=== PATIENT | female | born 1970 | race Caucasian/White ===

== ENCOUNTER → 2017-05-21 | Outpatient (CLI) | payer OTHER ==
--- NOTE | 2017-05-21 13:05 | CT ---
EXAMINATION TYPE: CT brain wo con DATE OF EXAM: 05/21/2017 COMPARISON: NONE HISTORY: High blood pressure and headache CT DLP: [address] of the brain was performed. The ventricles, basal cisterns and sulci overlying the cerebral convexities demonstrate a normal appe arance. There is no evidence for intracranial hemorrhage or sulcal effacement. No mass effects are seen. Osseous calvarium is intact. If symptoms persist consider MRI as clinically warranted. IMPRESSION: 1. No acute intracranial process is seen at this time.
== END | disposition home or self-care (01) ==
LOC: RADCTMAIN 12:45
PROVIDERS: ATTEND Physician Assistant Medical
DX: R51 Headache (principal); I10 Essential (primary) hypertension
CPT/HCPCS: 70450

== ENCOUNTER 2018-08-23 14:52 | Emergency (ER) | payer OTHER ==
[2018-08-23 15:15] VITALS: TEMP 98
[2018-08-23 17:04] LABS: Basophils % (A) 0 %; Eosinophils # (A) 0.2 k/uL (0-0.7); Eosinophils % (A) 3 %; HCT 40.9 % (34.0-46.0); Lymphocytes # (A) 1.8 k/uL (1.0-4.8); Lymphocytes % (A) 20 %; MCH 27.9 pg (25.0-35.0); MCHC 31.7 g/dL (31.0-37.0); Mean Platelet Volume 7.5; Monocytes # (A) 0.5 k/uL (0-1.0); Monocytes % (A) 6 %; Neutrophils # (A) 6.3 k/uL (1.3-7.7); Neutrophils % (A) 70 %; Platelet Count 267 k/uL (150-450); RBC 4.65 m/uL (3.80-5.40); RDW 12.9 % (11.5-15.5)
[2018-08-23 17:18] LABS: Calcium 9.2 mg/dL (8.4-10.2); Potassium 4.1 mmol/L (3.5-5.1); Total Bilirubin 0.2 mg/dL (0.2-1.3); Total Protein 6.7 g/dL (6.3-8.2)
--- NOTE | 2018-08-23 17:23 | XR ---
EXAMINATION TYPE: XR chest 2V DATE OF EXAM: 08/23/2018 COMPARISON: None HISTORY: 48-year-old female with chest pain TECHNIQUE: PA and lateral views FINDINGS: The cardiomediastinal silhouette, aorta, and pulmonary vasculature are within normal limits. Low lung volumes with strandy bibasilar atelectasis. No consolidation or pleural effusion. IMPRESSION: Hypoventilatory changes but otherwise without acute cardiopulmonary process.
[2018-08-23 17:29] LABS: INR 0.9 (<1.2); Partial Thromboplastin Time 25.8 sec (22.0-30.0); Prothrombin Time 9.9 sec (9.0-12.0)
--- NOTE | 2018-08-23 17:40 | ED ---
General Adult HPI - General Source: patient, RN notes reviewed Mode of arrival: ambulatory Limitations: no limitations <Richard Payton - Last Filed: 08/23/18 17:49> <Dennis Cornell - Last Filed: 08/23/18 19:33> - General Chief complaint: Extremity Problem,Nontraumatic Stated complaint: Leg swelling in both legs Time Seen by Provider: 08/23/18 15:43 - History of Present Illness Initial comments: 48-year-old female with a past medical history hypertension, kidney stones, sarcoidosis, left knee replacement presents to the emergency department for bilateral lower extremity swelling. This has been ongoing for about one week. Patient states she otherwise feels fine. Denies any history of heart failure. Patient states that her has heart failure so he was concerned that this could be the case and wanted her to be evaluated. Patient denies standing on her feet more often than normal. States that swelling is better after she elevates her feet. Denies any significant pain in the calves.Patient has no other complaints at this time including shortness of breath, chest pain, abdominal pain, nausea or vomiting, headache, or visual changes. (Richard Payton) - Related Data Home Medications Medication Instructions Recorded Confirmed - 1 tab PO QAM 04/28/14 08/03/15 Metoprolol Succinate [Toprol XL] 100 mg PO QAM 04/28/14 08/03/15 Omeprazole [PriLOSEC] 20 mg PO QAM 04/28/14 08/03/15 Sertraline HCl 100 mg PO QAM 04/28/14 08/03/15 Zolpidem Tartrate 10 mg PO HS 04/28/14 08/03/15 Cyanocobalamin [Vitamin B-12] 500 mcg PO DAILY@1200 07/05/14 08/03/15 Probiotic(Dose Unknown) 1 tab PO DAILY 07/05/14 08/03/15 Previous Rx's Medication Instructions Recorded Cyclobenzaprine [Flexeril] 10 mg PO TID #20 tablet 08/03/15 HYDROcodone/APAP 5-325MG [Gulliver 5] 1 each PO Q4HR PRN #20 tab 08/03/15 Naproxen [Naprosyn] 500 mg PO Q12HR #24 tab 06/09/16 Allergies Allergy/AdvReac Type Severity Reaction Status Date / Time Iodinated Contrast- Oral and Allergy Rash/Hives Verified 08/23/18 15:15 IV Dye [Iodinated Contrast Media - IV Dye] Penicillins Allergy Rash/Hives Verified 08/23/18 15:15 Sulfa (Sulfonamide Allergy severe Verified 08/23/18 15:15 Antibiotics) blisters vancomycin Allergy Rash/Hives Verified 08/23/18 15:15 Review of Systems ROS Other: All systems not noted in ROS Statement are negative. <Richard Payton P - Last Filed: 08/23/18 17:49> ROS Other: All systems not noted in ROS Statement are negative. <Dennis Cornell - Last Filed: 08/23/18 19:33> ROS Statement: Those systems with pertinent positive or pertinent negative responses have been documented in the HPI. Past Medical History Past Medical History: GERD/Reflux, Hypertension Additional Past Medical History / Comment(s): HX KIDNEY STONES, SARCOIDOSIS History of Any Multi-Drug Resistant Organisms: None Reported Past Surgical History: Appendectomy, Section, Joint Replacement, Orthopedic Surgery Additional Past Surgical History / Comment(s): LT KNEE REPLACEMENT, monty heel spurs Past Anesthesia/Blood Transfusion Reactions: No Reported Reaction Past Psychological History: Depression Smoking Status: Former smoker Past Alcohol Use History: None Reported Past Drug Use History: None Reported - Past Family History Mother Family Medical History: No Reported History Father Family Medical History: No Reported History Additional Family Medical History / Comment(s): COLON RESECTION R/T DIVERTICULITIS <Richard Payton P - Last Filed: 08/23/18 17:49> General Exam Limitations: no limitations General appearance: alert, in no apparent distress Head exam: Present: atraumatic, normocephalic, normal inspection Eye exam: Present: normal appearance, PERRL, EOMI. Absent: scleral icterus, conjunctival injection, periorbital swelling ENT exam: Present: normal exam, mucous membranes moist Neck exam: Present: normal inspection, full ROM. Absent: tenderness, meningismus, lymphadenopathy Respiratory exam: Present: normal lung sounds bilaterally. Absent: respiratory distress, wheezes, rales, rhonchi, stridor Cardiovascular Exam: Present: regular rate, normal rhythm, normal heart sounds. Absent: systolic murmur, diastolic murmur, rubs, gallop, clicks GI/Abdominal exam: Present: soft, normal bowel sounds. Absent: distended, tenderness, guarding, rebound, rigid Extremities exam: Present: full ROM (Full range of motion of lower extremities bilaterally), normal capillary refill (Capillary refill less than 2 seconds, DP pulses 2+ and equal bilaterally), pedal edema (Mild edema noted of bilateral lower extremities however there is no pitting edema present. Patient does have large body habitus so it is difficult to decipher edema versus habitus.), other (Sensation intact in lower extremity bilaterally.). Absent: joint swelling (No swelling of the joints of the lower extremities,), calf tenderness (No tenderness of bilateral calves, negative Eduardo signs. No erythema or increased warmth and lower extremities) Neurological exam: Present: alert, oriented X3, CN II-XII intact Psychiatric exam: Present: normal affect, normal mood <Richard Payton P - Last Filed: 08/23/18 17:49> Course Vital Signs 08/23/18 08/23/18 15:13 18:46 Temperature 98.0 F Pulse Rate 84 80 Respiratory 18 16 Rate Blood Pressure 133/86 138/98 O2 Sat by Pulse 99 97 Oximetry EKG Findings - EKG Comments: EKG Findings:: Normal sinus rhythm, ventricular rate 80, SC interval 172, QTC 452, no evidence of ST elevation or depression <Richard Payton P - Last Filed: 08/23/18 17:49> Medical Decision Making - Lab Data Result diagrams: 08/23/18 16:24 08/23/18 16:24 <Richard Payton - Last Filed: 08/23/18 17:49> - Lab Data Result diagrams: 08/23/18 16:24 08/23/18 16:24 <Dennis Cornell - Last Filed: 08/23/18 19:33> - Medical Decision Making 48-year-old female with a past medical history of hypertension, kidney stones, sarcoidosis, left knee replacement presents to the emergency department for bilateral lower extremity swelling 1 week. States she otherwise feels fine, no chest pain shortness of breath. No abdominal pain. No history of heart failure. No swelling elsewhere. She denies any increased standing or walking. Denies shortness of breath. States that swelling improves after she elevates her feet. Neurovascular status intact in lower extremities. Patient does have a large body habitus so it is difficult to decipher edema versus normal habitus however no pitting edema. Circumference equal bilaterally. Patient is otherwise well-appearing, sitting on edge of bed, no distress. CBC CMP unremar kable. Troponin is negative. BNP is 131. EKG shows a normal sinus rhythm with a ventricular rate of 80. Chest x-ray shows no consolidation or pleural effusion. Hypoventilatory changes noted but otherwise without acute cardiopulmonary process. At this time she has likely benign dependent edema. No evidence of heart failure. At this point discussed compression stockings of lung primary care tomorrow. Discussed returning here if she has any worsening symptoms. (Richard Payton) 40-year-old female with bilateral lower extremity edema for one week. Patient well-appearing with stable vitals. Chest x-ray negative for acute pulmonary edema. She has normal CBC, normal CMP, negative troponin, negative BMP. I feel this is likely related to dependent edema. Patient stable for discharge and outpatient follow-up. (Dennis Cornell) - Lab Data Lab Results 08/23/18 08/23/18 08/23/18 Range/Units 16:24 16:24 16:24 WBC 9.0 (3.8-10.6) k/uL RBC 4.65 (3.80-5.40) m/uL Hgb 13.0 (11.4-16.0) gm/dL Hct 40.9 (34.0-46.0) % MCV 88.0 (80.0-100.0) fL MCH 27.9 (25.0-35.0) pg MCHC 31.7 (31.0-37.0) g/dL RDW 12.9 (11.5-15.5) % Plt Count 267 (150-450) k/uL Neutrophils % 70 % Lymphocytes % 20 % Monocytes % 6 % Eosinophils % 3 % Basophils % 0 % Neutrophils # 6.3 (1.3-7.7) k/uL Lymphocytes # 1.8 (1.0-4.8) k/uL Monocytes # 0.5 (0-1.0) k/uL Eosinophils # 0.2 (0-0.7) k/uL Basophils # 0.0 (0-0.2) k/uL PT 9.9 (9.0-12.0) sec INR 0.9 (<1.2) APTT 25.8 (22.0-30.0) sec Sodium 142 (137-145) mmol/L Potassium 4.1 (3.5-5.1) mmol/L Chloride 105 (98-107) mmol/L Carbon Dioxide 28 (22-30) mmol/L Anion Gap 9 mmol/L BUN 15 (7-17) mg/dL Creatinine 0.89 (0.52-1.04) mg/dL Est GFR (CKD-EPI)AfAm 89 (>60 ml/min/1.73 sqM) Est GFR (CKD-EPI)NonAf 77 (>60 ml/min/1.73 sqM) Glucose 107 H (74-99) mg/dL Calcium 9.2 (8.4-10.2) mg/dL Magnesium 2.0 (1.6-2.3) mg/dL Total Bilirubin 0.2 (0.2-1.3) mg/dL AST 18 (14-36) U/L ALT 21 (9-52) U/L Alkaline Phosphatase 84 (38-126) U/L Troponin I (0.000-0.034) ng/mL NT-Pro-B Natriuret Pep pg/mL Total Protein 6.7 (6.3-8.2) g/dL Albumin 4.0 (3.5-5.0) g/dL 08/23/18 08/23/18 Range/Units 16:24 16:24 WBC (3.8-10.6) k/uL RBC (3.80-5.40) m/uL Hgb (11.4-16.0) gm/dL Hct (34.0-46.0) % MCV (80.0-100.0) fL MCH (25.0-35.0) pg MCHC (31.0-37.0) g/dL RDW (11.5-15.5) % Plt Count (150-450) k/uL Neutrophils % % Lymphocytes % % Monocytes % % Eosinophils % % Basophils % % Neutrophils # (1.3-7.7) k/uL Lymphocytes # (1.0-4.8) k/uL Monocytes # (0-1.0) k/uL Eosinophils # (0-0.7) k/uL Basophils # (0-0.2) k/uL PT (9.0-12.0) sec INR (<1.2) APTT (22.0-30.0) sec Sodium (137-145) mmol/L Potassium (3.5-5.1) mmol/L Chloride (98-107) mmol/L Carbon Dioxide (22-30) mmol/L Anion Gap mmol/L BUN (7-17) mg/dL Creatinine (0.52-1.04) mg/dL Est GFR (CKD-EPI)AfAm (>60 ml/min/1.73 sqM) Est GFR (CKD-EPI)NonAf (>60 ml/min/1.73 sqM) Glucose (74-99) mg/dL Calcium (8.4-10.2) mg/dL Magnesium (1.6-2.3) mg/dL Total Bilirubin (0.2-1.3) mg/dL AST (14-36) U/L ALT (9-52) U/L Alkaline Phosphatase (38-126) U/L Troponin I <0.012 (0.000-0.034) ng/mL NT-Pro-B Natriuret Pep 131 pg/mL Total Protein (6.3-8.2) g/dL Albumin (3.5-5.0) g/dL Disposition Is patient prescribed a controlled substance at d/c from ED?: No Time of Disposition: 17:51 <Richard Payton P - Last Filed: 08/23/18 17:49> <Dennis Cornell - Last Filed: 08/23/18 19:33> Clinical Impression: Dependent edema Disposition: HOME SELF-CARE Condition: Good Instructions (If sedation given, give patient instructions): Leg Edema (ED) Additional Instructions: Please use compression stockings. Keep legs elevated while sitting. Follow up with primary care in 1-2 days. Return here if you have any worsening symptoms. Referrals: Willian Elliott DO [Primary Care Provider] - 1-2 days
[2018-08-23 18:47] VITALS: BP 138/98; PULSE 80; RESP 16
== END 2018-08-23 19:04 | disposition home or self-care (01) ==
LOC: EC 14:52
DX: R60.9 Edema, unspecified (principal); I10 Essential (primary) hypertension; K21.9 Gastro-esophageal reflux disease without esophagitis; F32.9 Major depressive disorder, single episode, unspecified; Z79.899 Other long term (current) drug therapy; Z88.0 Allergy status to penicillin; Z88.1 Allergy status to other antibiotic agents; Z88.2 Allergy status to sulfonamides; Z91.041 Radiographic dye allergy status; Z87.891 Personal history of nicotine dependence; Z96.652 Presence of left artificial knee joint
CPT/HCPCS: 36415; 71046; 80053; 83735; 83880; 84484; 85025; 85610; 85730; 99284

== ENCOUNTER → 2019-02-01 | Outpatient (CLI) | payer OTHER ==
--- NOTE | 2019-02-02 08:51 | MM ---
Reason for exam: screening (asymptomatic). Last mammogram was performed 4 years ago. History: Benign excisional biopsy of the left breast, 2000. Took hormonal contraceptives for 10 years. Physical Findings: A clinical breast exam by your physician is recommended on an annual basis and results should be correlated with mammographic findings. MG 3D Screening Mammo W/Cad Bilateral CC and MLO view(s) were taken. Prior study comparison: February 01, 2015, bilateral MG 3d screening mammo w/cad. There are scattered fibroglandular densities. Benign calcifications. No significant changes when compared with prior studies. ASSESSMENT: Benign, BI-RAD 2 RECOMMENDATION: Routine screening mammogram of both breasts in 1 year.
== END | disposition home or self-care (01) ==
LOC: RADMAMWWP 13:53
PROVIDERS: ATTEND Family Medicine
DX: Z12.31 Encounter for screening mammogram for malignant neoplasm of breast (principal)
CPT/HCPCS: 77063; 77067

== ENCOUNTER → 2020-06-12 | Outpatient (CLI) | payer OTHER ==
[2020-06-12 13:29] VITALS: BP 122/88; PULSE 83; RESP 16; TEMP 98.1
--- NOTE | 2020-06-12 14:00 | P.PAINCN ---
History of Present Illness - Reason for Consult Consult date: 06/12/20 - History of Present Illness This is 50 years old female with a chronic history of severe neck pain and headaches started 6 years ago, after she hit her neck against wall, patient had cervical epidural steroid injection x2 , which helped her pain significantly, patient did very well until 6 months ago when she started to have similar symptoms, which is severe neck pain with some headache, the neck pain is constant and increases with any neck movement, the pain is not radiating to the upper extremity, she denies any numbness or tingling sensation, she reports that the pain radiated to the left shoulder blade area, she denies any visual changes, she denies any numbness or tingling sensation in the upper extremity, she denies any fever or night sweats, she denies any change in the bowel movements or urination, patient failed conservative treatment Past Medical History Past Medical History: GERD/Reflux, Hypertension Additional Past Medical History / Comment(s): had fallen hard and valentín neck back in 2016-at that time received injections to neck x3 with good relief ,now having neck pain radiating vazquez shoulders causing migraines, HX KIDNEY STONES, SARCOIDOSIS History of Any Multi-Drug Resistant Organisms: None Reported Past Surgical History: Appendectomy, Section, Joint Replacement, O rthopedic Surgery Additional Past Surgical History / Comment(s): VAZQUEZ KNEE REPLACEMENTs, vazquez heel spurs Past Anesthesia/Blood Transfusion Reactions: No Reported Reaction Past Psychological History: Depression Smoking Status: Former smoker Past Alcohol Use History: None Reported Additional Past Alcohol Use History / Comment(s): STARTED SMOKING AT AGE 19 OR 20,QUIT SMOKING AT AGE 26 Past Drug Use History: None Reported - Past Family History Mother Family Medical History: No Reported History Father Family Medical History: No Reported History Additional Family Medical History / Comment(s): COLON RESECTION R/T DIVERTICULITIS Medications and Allergies Home Medications Medication Instructions Recorded Confirmed Type Metoprolol Succinate [Toprol XL] 100 mg PO QAM 04/28/14 06/08/20 History Omeprazole [PriLOSEC] 20 mg PO QAM 04/28/14 06/08/20 History Sertraline HCl 100 mg PO QAM 04/28/14 06/08/20 History Zolpidem Tartrate 10 mg PO 04/28/14 06/08/20 History Cyanocobalamin [Vitamin B-12] 500 mcg PO DAILY@1200 07/05/14 06/08/20 History Cholecalciferol [Vitamin D3 (25 125 mcg PO DAILY 06/08/20 06/08/20 History Mcg = 1000 Iu)] Flaxseed Oil [[place]-3 Flaxseed Oil] 1 dose PO DAILY 06/08/20 06/08/20 History Ibuprofen [Motrin] 600 mg PO Q8HR PRN 06/08/20 06/08/20 History Oxybutynin Chloride 5 mg PO BID 06/08/20 06/08/20 History Vitamin C/Biotin [Hair, Skin and 2 tab PO DAILY 06/08/20 06/08/20 History Nails] Vitamin E 400 unit PO DAILY 06/08/20 06/08/20 History Zinc 50 mg PO DAILY 06/08/20 06/08/20 History buPROPion XL [Wellbutrin Xl] 300 mg PO DAILY 06/08/20 06/08/20 History hydroCHLOROthiazide [Hydrodiuril] 25 mg PO DAILY 06/08/20 06/08/20 History Allergies Allergy/AdvReac Type Severity Reaction Status Date / Time Iodinated Contrast Media Allergy Rash/Hives Verified 06/08/20 14:30 [Iodinated Contrast Media - IV Dye] Penicillins Allergy Rash/Hives Verified 06/08/20 14:30 Sulfa (Sulfonamide Allergy severe Verified 06/08/20 14:30 Antibiotics) blisters vancomycin Allergy Rash/Hives Verified 06/08/20 14:30 Physical Exam Vitals: Vital Signs Temp Pulse Resp BP Pulse Ox 06/12/20 13:26 98.1 F 83 16 122/88 96 Physical Examinations : -Constitutiona : Cooperative , not in acute distress . -HEENT : nech : supple , no Lymphadenopathy , normal thyroid size . : eyes : no ptosis , no icterus, no photophobia . - neurologic : Cranial nerve II to XII intact , no focal neurological deffecit . -psychatric : alert , oriented X 3 , appropriate affect , intact judgment and insight . -Lymphatic : no Lymphadenopathy . - musculoskeltal : Cervical Spine motor stregnth in the deltoid and biceps, normal right side , normal Left side motor stregnth biceps and the wrist extensors normal right side ,normal left side . motor stregnth in the triceps muscle . normal Right side , normal Left side deep tendon reflexes normal at the biceps , normal at Brachioradialis , normal at triceps. cervical facet loading test: Positive Bilaterally Spurling test= positive Right , positive left. Neck distraction test= positive Right , positive left. Kamari sign= positive right, positive left . Lumber spine moter stegnth lower extremities ,thigh and legs 5/5 Right side , 5/5 Left side Results Comments: MRI of the cervical spine= multilevel cervical degenerative disc disease and multilevel cervical facet arthropathy Assessment and Plan Plan: Assessment and plan=1-cervical degenerative disc disease. 2-cervical spondylosis and cervical facet arthropathy. Patient could benefit from cervical epidural steroid injections under fluoroscopy guidance at C6 7 or C7-T1 If she continued to have severe neck pain after cervical epidural steroid injection, then we went targeting the facetogenic component by doing Medial branch block Time with Patient: Greater than 30 PQRS Measure Charge Sheet Measure #130: Documentation of Current Meds in Medical Chart: Patient's medications documented in chart Measure #226: Tobacco Use: Screen & Cessation Intervention: Pt not a tobacco user Measure #111: Pneumonia Vaccination: Pneumococcal vaccine NOT administered or previously given Measure #47: Advance Care Plan: Advance care planning discussed & documented, pt chose/unable to give Measure #412: Opioid Treatment Agreement: No documentation of signed opioid treatment agreement Measure #408: Opioid Therapy Follow-up Evaluation: Patient had NO f/u eval minimum every 3 months during opioid therapy Measure #317: Preventitive Care & Scrn High Bld Press & F/U: Normal blood pressure, f/u not required Measure #128: Body Mass Index (BMI) Screening & Follow-up: BMI documented ABOVE normal parameters - f/u documented Measure #131: Pain Assessment & Follow-up: Pain positive & plan documented, Follow-up scheduled Measure #431: Unhealthy Alcohol Use Preventative Care & Scrn: Patient not identified as an unhealthy alcohol user PQRS Narrative: Smoking Status Former smoker Blood Pressure 122/88 Pain Intensity [Neck] 4 Scale Used Numeric (1 - 10) Hx Alcohol Use (MH) No Home Medications: Ambulatory Orders Metoprolol Succinate [Toprol XL] 100 mg PO QAM 04/28/14 Omeprazole [PriLOSEC] 20 mg PO QAM 04/28/14 Sertraline HCl 100 mg PO QAM 04/28/14 Zolpidem Tartrate 10 mg PO 04/28/14 Cyanocobalamin [Vitamin B-12] 500 mcg PO DAILY@1200 07/05/14 Cholecalciferol [Vitamin D3 (25 Mcg = 1000 Iu)] 125 mcg PO DAILY 06/08/20 Flaxseed Oil [[place]-3 Flaxseed Oil] 1 dose PO DAILY 06/08/20 Ibuprofen [Motrin] 600 mg PO Q8HR PRN 06/08/20 Oxybutynin Chloride 5 mg PO BID 06/08/20 Vitamin C/Biotin [Hair, Skin and Nails] 2 tab PO DAILY 06/08/20 Vitamin E 400 unit PO DAILY 06/08/20 Zinc 50 mg PO DAILY 06/08/20 buPROPion XL [Wellbutrin Xl] 300 mg PO DAILY 06/08/20 hydroCHLOROthiazide [Hydrodiuril] 25 mg PO DAILY 06/08/20
== END ==
LOC: PNWHC3 13:06
PROVIDERS: ATTEND Specialist
DX: M47.812 Spondylosis without myelopathy or radiculopathy, cervical region (principal); M50.30 Other cervical disc degeneration, unspecified cervical region; K21.9 Gastro-esophageal reflux disease without esophagitis; I10 Essential (primary) hypertension; F32.9 Major depressive disorder, single episode, unspecified; Z79.899 Other long term (current) drug therapy; Z87.891 Personal history of nicotine dependence
CPT/HCPCS: 99211

== ENCOUNTER 2020-07-04 13:16 | Day surgery (SDC) | payer OTHER ==
[2020-06-30 09:34] VITALS: BMI 54.9
[~2020-07-04 13:16] MED LIST: LACTATED RINGERS 1,000 ML IV SCH
[2020-07-04 13:30] VITALS: TEMP 97.8
[2020-07-04] MEDS ORDERED: DEXAMETHASONE SOD PHOSPHATE 10 MG/ML 1 ML VIAL ONE (14:07)
[2020-07-04] MEDS ORDERED: MIDAZOLAM 2 MG/2 ML VIAL ONE (14:07)
[2020-07-04] MEDS ORDERED: fentaNYL (PF) 50 MCG/ML 2 ML AMP ONE (14:07)
--- NOTE | 2020-07-04 14:24 | P.PCN ---
Date of Procedure: 07/04/20 Description of Procedure: Pre- and Post-operative Diagnosis: Cervical radiculopathy Procedure: C7-T1 Inter-Laminar Cervical Epidural Steroid Injection under biplanar fluoroscopy Surgeon: Deena Anaya Anesthesia: Local: 1% Lidocaine, IV sedation : Versed and fentanyl. Complications: None. Estimated blood loss: None Specimens removed: None Fluoroscopic image: saved to electronic medical records. Indications for Procedure: The patient has been suffering from neck pain and pain radiating to the upper extremity . Inadequate pain control with pharmacologic regimen. An inter-laminar approach cervical epidural steroid injection was scheduled for the patient. Procedure and Findings: The patient was seen and examined in the holding area. The written informed consent was obtained after explaining the risks, benefits, alternatives of the procedure to the patient. The patient was brought to the procedure room and was placed in the prone position on the operating table. A pillow was placed under the upper chest. Standard anesthesia monitoring was done through out the procedure. Timeout was completed. The skin preparation was done with ChloraPrep 1 and draping was done in usual sterile fashion. Sterile technique was observed throughout the procedure. Under fluoroscopic guidance, the C7-T1 inter-laminar space was identified. 3 ml of 1% Lidocaine was injected with a 25 gauge needle to achieve adequate local anesthesia of the skin and subcutaneous tissue. A 20 gauge, 3.5 inch Tuohy type epidural needle was placed and gradually advanced up to the epidural space using loss of resistance technique and fluoroscopic guidance. Lateral, oblique fluoroscopic views confirm the needle position. No paresthesia was noted. A negative aspiration was confirmed , patient is ALLERGIC to IV contrast so no contrast was injected as hospital has no Magnevist at this time. A total of 6 ml solution containing 10 mg Dexamethasone, and 5 ml preservative-free Normal Saline was injected slowly with intermittent aspiration. The needle was removed intact, area was cleaned and bandage was applied. Disposition : The patient tolerated the procedure very well. The patient was transferred to the recovery room and remained stable until discharged home. The patient was given detailed discharge instructions for bleeding, infection, increased pain at the injection site, and was advised to seek immediate medical attention should significant side effects develop. The patient will be followed up with our Pain [facility] within 4 weeks for follow-up visit.
[2020-07-04] MEDS ORDERED: IV FLUID CONTINUATION 1,000 ML IV ONE (14:26)
[2020-07-04 14:30] VITALS: RESP 18
[2020-07-04 14:45] VITALS: BP 119/84; PULSE 67
--- NOTE | 2020-07-04 14:45 | FL ---
Fluoroscopy HISTORY: Pain 12 seconds fluoroscopy time supplied to the referring clinician. 3 intraoperative C-arm images docum ent the procedure. See dictated report from anesthesia.
== END 2020-07-04 14:57 | disposition home or self-care (01) ==
LOC: ORPAIN 13:16
DX: M54.12 Radiculopathy, cervical region (principal); I10 Essential (primary) hypertension; D86.0 Sarcoidosis of lung; Z88.5 Allergy status to narcotic agent; Z88.0 Allergy status to penicillin; Z91.041 Radiographic dye allergy status; Z98.891 History of uterine scar from previous surgery; Z96.653 Presence of artificial knee joint, bilateral; Z98.890 Other specified postprocedural states
CPT/HCPCS: 81025; 62321; J2250; J1100; J3010; 99152

== ENCOUNTER → 2020-07-05 | Outpatient (CLI) | payer OTHER ==
--- NOTE | 2020-07-05 16:12 | XR ---
EXAM TYPE: LUMBAR SPINE X RAY SERIES COMPARISON: NONE HISTORY: Pain TECHNIQUE: 4 views are submitted. FINDINGS: Alignment is anatomic. The pedicles are intact. The transverse processes are intact. There is dege nerative disc disease L5-S1 with facet arthropathy. Hypertrophic spurring seen at levels L3, L4 and L 5 anteriorly. No spondylolisthesis. No spondylolysis. IMPRESSION: 1. Degenerative disc disease with facet arthropathy L5-S1 consider follow-up MRI.
== END | disposition home or self-care (01) ==
LOC: RADXRYALE 15:38
PROVIDERS: ATTEND Physician Assistant Medical
DX: M51.37 Other intervertebral disc degeneration, lumbosacral region (principal); M47.817 Spondylosis without myelopathy or radiculopathy, lumbosacral region
CPT/HCPCS: 72110

== ENCOUNTER → 2020-07-31 | Outpatient (CLI) | payer OTHER ==
--- NOTE | 2020-07-31 10:13 | P.PN ---
Subjective Progress Note Date: 07/31/20 This is a follow-up visit for this 50 years old female with a chronic history of severe neck pain and headaches , status post cervical epidural steroid injection patient reported that she had good benefit from it for short-term, and she continues to have severe neck pain ,the pain is increased with any activity, interfere with the quality of life, she denies any motor or sensory deficits she is able to ambulate her and she denies any fever or night sweats and is no change in bowel movement or urination Physical Examinations : -Constitutiona : Cooperative , not in acute distress . -HEENT : nech : supple , no Lymphadenopathy , normal thyroid size . : eyes : no ptosis , no icterus, no photophobia . - neurologic : Cranial nerve II to XII intact , no focal neurological deffecit . -psychatric : alert , oriented X 3 , appropriate affect , intact judgment and insight . -Lymphatic : no Lymphadenopathy . - musculoskeltal : Cervical Spine motor stregnth in the deltoid and biceps, normal right side , normal Left side motor stregnth biceps and the wrist extensors normal right side ,normal left side . motor stregnth in the triceps muscle . normal Right side , normal Left side deep tendon reflexes normal at the biceps , normal at Brachioradialis , normal at triceps. cervical facet loading test: Positive Bilaterally Spurling test= positive Right , positive left. Neck distraction test= positive Right , positive left. Kamari sign= positive right, positive left . Lumber spine moter stegnth lower extremities ,thigh and legs 5/5 Right side , 5/5 Left side Results MRI of the cervical spine= multilevel cervical degenerative disc disease and multilevel cervical facet arthropathy Assessment and plan= 1-cervical degenerative disc disease. 2-cervical spondylosis and cervical facet arthropathy. Patient could benefit from repeate cervical epidural steroid injections under fluoroscopy guidance at C6 7 or C7-T1 If she continued to have severe neck pain after cervical epidural steroid injection, then we have to target the facetogenic component by doing Medial branch block Time with Patient: Greater than 30 PQRS Measure Charge Sheet Measure #130: Documentation of Current Meds in Medical Chart: Patient's medications documented in chart Measure #226: Tobacco Use: Screen & Cessation Intervention: Pt not a tobacco user Measure #111: Pneumonia Vaccination: Pneumococcal vaccine NOT administered or previously given Measure #47: Advance Care Plan: Advance care planning discussed & documented, pt chose/unable to give Measure #412: Opioid Treatment Agreement: No documentation of signed opioid treatment agreement Measure #408: Opioid Therapy Follow-up Evaluation: Patient had NO f/u eval minimum every 3 months during opioid therapy Measure #317: Preventitive Care & Scrn High Bld Press & F/U: Normal blood pressure, f/u not required Measure #128: Body Mass Index (BMI) Screening & Follow-up: BMI documented ABOVE normal parameters - f/u documented Measure #131: Pain Assessment & Follow-up: Pain positive & plan documented, Follow-up scheduled Measure #431: Unhealthy Alcohol Use Preventative Care & Scrn: Patient not identified as an unhealthy alcohol user Objective - Vital Signs Vital signs: Vital Signs Temp 98.4 F 07/31/20 09:31 Pulse 75 07/31/20 09:31 Resp 18 07/31/20 09:31 BP 131/85 07/31/20 09:31 Pulse Ox 97 07/31/20 09:31
== END ==
CPT/HCPCS: 99211

== ENCOUNTER 2020-08-15 10:05 | Day surgery (SDC) | payer OTHER ==
[2020-08-11 11:27] VITALS: BMI 54.9
[2020-08-15 10:41] VITALS: RESP 16; TEMP 98.1
[2020-08-15] MEDS ORDERED: fentaNYL (PF) 50 MCG/ML 2 ML AMP ONE (10:55)
[2020-08-15] MEDS ORDERED: MIDAZOLAM 2 MG/2 ML VIAL ONE (10:55)
[2020-08-15] MEDS ORDERED: DEXAMETHASONE SOD PHOSPHATE 10 MG/ML 1 ML VIAL ONE (10:55)
--- NOTE | 2020-08-15 11:12 | P.PCN ---
Date of Procedure: 08/15/20 Surgeon: Sheng Spann Pathology: none sent Condition: stable Disposition: PACU Description of Procedure: PROCEDURE 1. Cervical epidural steroid injection under fluoroscopic guidance, C7-T1 left paramedian approach. : PREOPERATIVE DIAGNOSIS: Cervical radiculopathy, cervical spondylosis without myelopathy POSTOPERATIVE DIAGNOSIS: : Same as above ANESTHESIA: Local anesthesia with 1% lidocaine and IV moderate conscious sedation with Versed and Fentanyl . EBL 0 PROCEDURE INDICATION: The patient with neck pain and radiculopathy unresponsive to conservative treatment consents for procedure. PROCEDURE DESCRIPTION / TECHNIQUE: The patient was seen and identified in the preoperative area. Risks, benefits, complications, including but not limited to infections ,bleeding , allergic reactions to the medications ,and not complete pain relief, and alternatives were discussed with the patient, the patient agreed to proceed with the procedure and signed the consent. No contrast will be used today due to the patient's ALLERGIC reaction to IVP dye. Patient was taken to the OR and time out was completed. The patient was placed in the prone position on the procedure table. A pillow was placed under the patients chest to increase the flexion of the cervical spine . The cervical area was prepped and draped in the usual sterile fashion. Vital signs were closely monitored during the procedure. Conscious sedation was used during the procedure to decrease patients anxiety. Using anterior-posterior fluoroscopy, the C7-T1 interlaminar space was identified and the skin over this site was marked and then infiltrated with 1% lidocaine subcutaneously. Subsequently, a 20-gauge 3-1/2-inch Tuohy epidural needle was inserted and advanced toward the epidural space by means of loss of resistance to air technique and guided by AP and lateral fluoroscopy. The needle tip contacted the lamina of T1 vertebra first, then it was walked off bone and into the epidural space using the loss of to air and fluoroscopic guidance to identify the epidural space. , after negative aspiration for blood and CSF and in the absence of paresthesias, a 2 ml mixture containing 10 mg of Decadron and 1 ml of preservative free Normal Saline solution was injected and a washout of epidurogram was seen. Needle was withdrawn intact, skin was cleansed, and bandages were applied. A copy of the needle placement picture was saved to the fluoroscopy machine.
[2020-08-15] MEDS ORDERED: IV FLUID CONTINUATION 1,000 ML IV ONE (11:15)
[2020-08-15 11:37] VITALS: BP 102/69; PULSE 69
--- NOTE | 2020-08-15 12:50 | FL ---
Fluoroscopy HISTORY: Pain 6 seconds fluoroscopy time supplied to the referring clinician. 1 intraoperative C-arm images docume nt the procedure. See dictated report from anesthesia.
== END 2020-08-15 11:51 | disposition home or self-care (01) ==
LOC: ORPAIN 10:05
PROVIDERS: ATTEND Anesthesiology
DX: M47.22 Other spondylosis with radiculopathy, cervical region (principal); I10 Essential (primary) hypertension; E66.01 Morbid (severe) obesity due to excess calories; Z68.43 Body mass index [BMI] 50.0-59.9, adult; Z91.041 Radiographic dye allergy status; Z88.1 Allergy status to other antibiotic agents; Z88.0 Allergy status to penicillin; Z88.2 Allergy status to sulfonamides
CPT/HCPCS: 81025; 62321; J2250; J1100; J3010; 99152

== ENCOUNTER → 2020-09-06 | Outpatient (CLI) | payer OTHER ==
[2020-09-06 11:00] VITALS: BP 132/86; PULSE 90; RESP 18
[2020-09-06 11:02] VITALS: TEMP 97.9
--- NOTE | 2020-09-06 11:26 | P.PN ---
Subjective Progress Note Date: 09/06/20 This is 50 years old female with a chronic history of severe neck pain and headaches started 6 years ago, after she hit her neck against wall, patient had cervical epidural steroid injection x2 , which helped her pain to neck pain improved by 60-65%, she is complaining of severe neck pain with some headache, the neck pain is constant and increases with any neck movement, the pain is not radiating to the upper extremity, she denies any numbness or tingling sensation, she reports that the pain radiated to the left shoulder blade area, she denies any visual changes, she denies any numbness or tingling sensation in the upper extremity, she denies any fever or night sweats, she denies any change in the bowel movements or urination, patient failed conservative treatment Physical Examinations : -Constitutiona : Cooperative , not in acute distress . -HEENT : nech : supple , no Lymphadenopathy , normal thyroid size . : eyes : no ptosis , no icterus, no photophobia . - neurologic : Cranial nerve II to XII intact , no focal neurological deffecit . -psychatric : alert , oriented X 3 , appropriate affect , intact judgment and insight . -Lymphatic : no Lymphadenopathy . - musculoskeltal : Cervical Spine motor stregnth in the deltoid and bi ceps, normal right side , normal Left side motor stregnth biceps and the wrist extensors normal right side ,normal left side . motor stregnth in the triceps muscle . normal Right side , normal Left side deep tendon reflexes normal at the biceps , normal at Brachioradialis , normal at triceps. cervical facet loading test: Positive Bilaterally Spurling test= positive Right , positive left. Neck distraction test= positive Right , positive left. Kamari sign= positive right, positive left . Lumber spine moter stegnth lower extremities ,thigh and legs 5/5 Right side , 5/5 Left side Results MRI of the cervical spine= multilevel cervical degenerative disc disease and multilevel cervical facet arthropathy Assessment and plan=1-cervical degenerative disc disease. 2-cervical spondylosis and cervical facet arthropathy. Patient could benefit from repeate cervical epidural steroid injections under fluoroscopy guidance at C6 7 or C7-T1 If she continued to have severe neck pain after cervical epidural steroid injection, then we need targeting the facetogenic component by doing Medial branch block Time with Patient: Greater than 30 PQRS Measure Charge Sheet Measure #130: Documentation of Current Meds in Medical Chart: Patient's medications documented in chart Measure #226: Tobacco Use: Screen & Cessation Intervention: Pt not a tobacco user Measure #111: Pneumonia Vaccination: Pneumococcal vaccine NOT administered or previously given Measure #47: Advance Care Plan: Advance care planning discussed & documented, pt chose/unable to give Measure #412: Opioid Treatment Agreement: No documentation of signed opioid treatment agreement Measure #408: Opioid Therapy Follow-up Evaluation: Patient had NO f/u eval minimum every 3 months during opioid therapy Measure #317: Preventitive Care & Scrn High Bld Press & F/U: Normal blood pressure, f/u not required Measure #128: Body Mass Index (BMI) Screening & Follow-up: BMI documented ABOVE normal parameters - f/u documented Measure #131: Pain Assessment & Follow-up: Pain positive & plan documented, Follow-up scheduled Measure #431: Unhealthy Alcohol Use Preventative Care & Scrn: Patient not identified as an unhealthy alcohol user PQRS Narrative: Objective - Vital Signs Vital signs: Vital Signs Temp 97.9 F 09/06/20 10:57 Pulse 90 09/06/20 10:57 Resp 18 09/06/20 10:57 BP 132/86 09/06/20 10:57 Pulse Ox 94 L 09/06/20 10:57 Intake & Output 09/05/20 09/06/20 09/06/20 18:59 06:59 18:59 Weight 104.326 kg
== END | disposition home or self-care (01) ==
LOC: PNWHC3 10:48
PROVIDERS: ATTEND Specialist
DX: M50.30 Other cervical disc degeneration, unspecified cervical region (principal); M46.92 Unspecified inflammatory spondylopathy, cervical region; M47.892 Other spondylosis, cervical region
CPT/HCPCS: 99211

== ENCOUNTER → 2021-01-09 | Outpatient (CLI) | payer OTHER ==
--- NOTE | 2021-01-09 18:32 | XR ---
Cervical spine HISTORY: [id number] INJURY,CERVICALGIA,RT KNEE KALEN 6 views of the cervical spine, comparison to prior exam 01/07/2014 There is no significant foraminal encroachment. Odontoid view is limited. Cervical vertebral bodies s how preserved height, alignment, bone mineralization. Disc spaces and prevertebral soft tissues are n ormal. There are some facet arthropathy changes. IMPRESSION: Normal no fracture or subluxation. There are limitations to the exam.
--- NOTE | 2021-01-09 18:46 | XR ---
Bilateral knees HISTORY: [id number] INJURY,CERVICALGIA,RT KNEE KALEN 3 views of each knee, total 6 images correlated to previous right knee 08/03/2015 Patient shows left and right knee arthroplasty change. Suprapatellar ossific densities may represent loose bodies bilaterally. There is anatomic alignment bilaterally. There is no fracture or dislocatio n evident. 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
== END | disposition home or self-care (01) ==
LOC: RADXRYALE 15:21
PROVIDERS: ATTEND Physician Assistant Medical
DX: M25.561 Pain in right knee (principal); M25.562 Pain in left knee; V86.59XA Driver of other special all-terrain or other off-road motor vehicle injured in nontraffic accident, initial encounter; X58.XXXA Exposure to other specified factors, initial encounter
CPT/HCPCS: 72050

== ENCOUNTER → 2021-01-15 | Outpatient (CLI) | payer OTHER ==
--- NOTE | 2021-01-16 12:51 | MM ---
Reason for exam: screening (asymptomatic). Last mammogram was performed 1 year and 11 months ago. History: Benign excisional biopsy of the left breast, 2000. Took hormonal contraceptives for 10 years. Physical Findings: A clinical breast exam by your physician is recommended on an annual basis and results should be correlated with mammographic findings. MG 3D Screening Mammo W/Cad Bilateral CC and MLO view(s) were taken. Prior study comparison: February 01, 2019, bilateral MG 3d screening mammo w/cad. February 01, 2015, bilateral MG 3d screening mammo w/cad. There are scattered fibroglandular densities. Stable benign calcifications. There is no discrete abnormality. No significant changes when compared with prior studies. ASSESSMENT: Benign, BI-RAD 2 RECOMMENDATION: Routine screening mammogram of both breasts in 1 year.
== END | disposition home or self-care (01) ==
LOC: RADMAMWWP 14:38
PROVIDERS: ATTEND Family Medicine
DX: Z12.31 Encounter for screening mammogram for malignant neoplasm of breast (principal)
CPT/HCPCS: 77063; 77067

== ENCOUNTER → 2021-01-22 | Outpatient (CLI) | payer OTHER ==
--- NOTE | 2021-01-22 18:25 | US ---
EXAMINATION TYPE: US venous doppler duplex LE RT DATE OF EXAM: 01/22/2021 5:46 PM COMPARISON: NONE CLINICAL HISTORY: R22.41 SWELLING, MASS AND LUMP RT,M79.604 PAIN IN RT LEG. Swelling and pain, total right knee replacement 2 years ago. No hx of DVT. SIDE PERFORMED: Right TECHNIQUE: The lower extremity deep venous system is examined utilizing real time linear array sonog mecca with graded compression, doppler sonography and color-flow sonography. VESSELS IMAGED: Common Femoral Vein Deep Femoral Vein Greater Saphenous Vein * Femoral Vein Popliteal Vein Small Saphenous Vein * Proximal Calf Veins (* superficial vessels) Right Leg: Limited due to patient body habitus. Difficulty visualizing mid and distal femoral vein i n transverse compression views. Color flow shown in all veins imaged at this time. IMPRESSION: Limited exam due to patient body habitus. No convincing evidence of deep venous thrombos is. Color flow shown in all veins imaged at this time. Difficulty visualizing right mid and distal fe moral vein in transverse compression views.
== END | disposition home or self-care (01) ==
LOC: RADUSWWP 17:06
PROVIDERS: ATTEND Family Medicine
DX: I87.1 Compression of vein (principal)

== ENCOUNTER → 2021-07-19 | Outpatient (CLI) | payer OTHER | END | disposition home or self-care (01) | LOC: PNWHC3 15:46 | PROVIDERS: ATTEND Specialist | DX: M54.2 Cervicalgia (principal); M54.12 Radiculopathy, cervical region | CPT/HCPCS: 99211 ==

== ENCOUNTER 2021-08-28 07:30 | Day surgery (SDC) | payer OTHER ==
[2021-08-28 08:01] VITALS: TEMP 97
[2021-08-28] MEDS ORDERED: DEXAMETHASONE SOD PHOSPHATE 10 MG/ML 1 ML VIAL ONE (08:06)
[2021-08-28] MEDS ORDERED: fentaNYL (PF) 50 MCG/ML 2 ML AMP ONE (08:06)
[2021-08-28] MEDS ORDERED: MIDAZOLAM 2 MG/2 ML VIAL ONE (08:06)
--- NOTE | 2021-08-28 08:21 | P.PCN ---
Date of Procedure: 08/28/21 Surgeon: Sheng Spann Pathology: none sent Condition: stable Disposition: PACU Description of Procedure: PROCEDURE 1. Cervical epidural steroid injection under fluoroscopic guidance at C7-T1 level in the right paramedian approach : PREOPERATIVE DIAGNOSIS: Cervical DDD,Cervical radiculopathy, cervical spondylosis without myelopathy POSTOPERATIVE DIAGNOSIS: : Same as above ANESTHESIA: Local anesthesia with 1% lidocaine and IV moderate conscious sedation with Versed and Fentanyl . EBL 0 PROCEDURE INDICATION: The patient with neck pain and radiculopathy unresponsive to conservative treatment consents for procedure. PROCEDURE DESCRIPTION / TECHNIQUE: The patient was seen and identified in the preoperative area. Risks, benefits, complications, including but not limited to infections ,bleeding , allergic reactions to the medications ,and not complete pain relief, and alternatives were discussed with the patient, the patient agreed to proceed with the procedure and signed the consent. No contrast will be used today due to the patient's ALLERGIC reaction to IVP dye. Patient was taken to the OR and time out was completed. The patient was placed in the prone position on the procedure table. A pillow was placed under the patients chest to increase the flexion of the cervical spine . The cervical area was prepped and draped in the usual sterile fashion. Vital signs were closely monitored during the procedure. Conscious sedation was used during the procedure to decrease patients anxiety. Using anterior-posterior fluoroscopy, the C7-T1 interlaminar space was identified and the skin over this site was marked and then infiltrated with 1% lidocaine subcutaneously. Subsequently, a 20-gauge 3-1/2-inch Tuohy epidural needle was inserted and advanced toward the epidural space by means of loss of resistance to air technique and guided by AP and lateral fluoroscopy. The needle tip contacted the lamina of T1 vertebra first, then it was walked off bone and into the epidural space using the loss of to air and fluoroscopic guidance to identify the epidural space. , after negative aspiration for blood and CSF and in the absence of paresthesias, a 2 ml mixture containing 10 mg of Decadron and 1 ml of preservative free Normal Saline solution was injected and a washout of epidurogram was seen. Needle was withdrawn intact, skin was cleansed, and bandages were applied. A copy of the needle placement picture was saved to the fluoroscopy machine.
[2021-08-28] MEDS ORDERED: IV FLUID CONTINUATION 1,000 ML IV ONE (08:25)
[2021-08-28 08:45] VITALS: BP 127/83; PULSE 62; RESP 17
--- NOTE | 2021-08-28 09:02 | FL ---
Fluoroscopy HISTORY: Pain 8 seconds fluoroscopy time supplied to the referring clinician. 1 intraoperative C-arm images docume nt the procedure. See dictated report from anesthesia.
== END 2021-08-28 09:03 | disposition home or self-care (01) ==
LOC: ORPAIN 07:30
PROVIDERS: ATTEND Anesthesiology
DX: M47.22 Other spondylosis with radiculopathy, cervical region (principal); M50.10 Cervical disc disorder with radiculopathy, unspecified cervical region; Z88.0 Allergy status to penicillin; Z88.2 Allergy status to sulfonamides; Z91.041 Radiographic dye allergy status; Z88.3 Allergy status to other anti-infective agents; Z79.899 Other long term (current) drug therapy; Z79.3 Long term (current) use of hormonal contraceptives; Z87.891 Personal history of nicotine dependence; Z83.79 Family history of other diseases of the digestive system
CPT/HCPCS: 81025; 62321; J2250; J1100; J3010; 99152

== ENCOUNTER → 2021-09-24 | Outpatient (CLI) | payer BC, OTHER ==
[2021-09-24 15:12] VITALS: BP 133/80; PULSE 76; RESP 18; TEMP 98.2
--- NOTE | 2021-09-24 15:13 | P.PAINPG ---
PQRS Measure Charge Sheet Comment: A 51 yr old female with a history of severe and chronic low back pain secondary to lumbar degenerative disc diseases and lumbar spondylosis with facet arthropathy presents today for evaluation s/p ROSSANA C7-T1. Pt states she received 0% pain relief s/p procedure. Pain level is currently at 5/10 in intensity, constant, localized in the lower part of the cervical spine, achy in character w radiation of sharp pain to the UEs. Pain is provoked by sitting upright for periods of 30 min or more. Pain is alleviated with PT in Nov 2020 for 6 weeks, massage integrated w PT, heat, ice, medications (Motrin), topicals, patches, repositioning and rest. Interventional pain procedures completed include ROSSANA C7-T1 Patient is currently on Motrin Patient denies any side effects of the medication(s), denies excessive drowsiness or sleepiness, denies suicidal ideation and reports that the current pain medication is helping to control the pain and improve activities of daily living. Patient denies any motor or sensory deficits. Patient denies any fever or night sweats, denies any change in the bowel movements or urination. Physical Examination: -Constitutional: Cooperative. Not in acute distress . - Neurologic: Cranial nerve II to XII intact. No focal neurological deficits. - Psychatric: Alert & oriented x 3. Matching mood & appropriate affect. Judgment and insight intact. - Musculoskeletal: Cervical spine: Muscle bulk/ tone/ strength in the bilateral upper extremities normal Vertebral body tenderness to palpation over Spurling test positive Distraction test positive Facet loading test positive over BL C5-C6, C6-C7 Thoracic spine Muscle bulk / tone/ strength in the bilateral paraspinal muscles normal Vertebral body tender to palpation over Facet loading test positive Lumbar spine: Motor bulk/ tone/ strength lower extremities , thigh and legs : 5/5 Deep tendon reflexes : Normal Knee Jerk. Normal Ankle Jerk . Vertebral body tenderness to palpation over Lumbar Facet Loading Test positive Straight Leg Raise: positive at 30 degrees right side/ left side Gaenslen's Test positive Sacral spine : Severe tenderness over the Sacroiliac joint: right side / left side Range of motion: Flexion of the lumbar spine <60 degrees Range of motion: Extension of the lumbar spine <20 degrees Gaenslen's Test positive Jey's Test positive Queenie test: positive right side / left side Thigh Thrust Test Sacral Thrust Test Assessment and plan: Chronic low back pain secondary to lumbar degenerative disc disease , lumbar spondylosis with facet arthropathy without myelopathy Recommendation of facet block of the medial branches BL C5-C6, C6-C7 #1. May need a series of injections, up until RFA, for optimal pain relief. Risks, benefits of procedure discussed and pt verbalized understanding. Denies anticoagulant use or medical history of diabetes. All patient questions answered MAPS reviewed and it was appropriate. I have spent less than 30 minutes on patient care today. Dr Lacy was available by phone for the evaluation of this patient. The time was used to review the medical records including relevant urine studies and Prescription history (MAPs), review of the available imaging, evaluation and examination of the patient, coordination of care with the medical staff and if applicable referring physicians, as well as creation of the medical record PQRS Narrative: Smoking Status Former smoker Hx Alcohol Use (MH) No Home Medications: Ambulatory Orders Metoprolol Succinate [Toprol XL] 100 mg PO QAM 04/28/14 Omeprazole [PriLOSEC] 20 mg PO QAM 04/28/14 Sertraline HCl 100 mg PO QAM 04/28/14 Zolpidem Tartrate 10 mg PO HS 04/28/14 Cyanocobalamin [Vitamin B-12] 500 mcg PO DAILY@1200 07/05/14 Cholecalciferol [Vitamin D3 (25 Mcg = 1000 Iu)] 125 mcg PO DAILY 06/08/20 Ibuprofen [Motrin] 600 mg PO Q8HR PRN 06/08/20 Oxybutynin Chloride 5 mg PO BID 06/08/20 Vitamin C/Biotin [Hair, Skin and Nails] 2 tab PO DAILY 06/08/20 Vitamin E 400 unit PO DAILY 06/08/20 Zinc 50 mg PO DAILY 06/08/20 buPROPion XL [Wellbutrin Xl] 300 mg PO DAILY 06/08/20 flaxseed oiL [Citra-3 Flaxseed Oil] 1 dose PO DAILY 06/08/20 hydroCHLOROthiazide [Hydrodiuril] 25 mg PO DAILY 06/08/20 Controlled Substance Measures - Controlled Substance Measures Is patient prescribed a controlled substance at discharge?: No
== END | disposition home or self-care (01) ==
LOC: PNWHC3 14:12
PROVIDERS: ATTEND Specialist
DX: M51.36 Other intervertebral disc degeneration, lumbar region (principal); M47.896 Other spondylosis, lumbar region; M46.96 Unspecified inflammatory spondylopathy, lumbar region
CPT/HCPCS: 99211

== ENCOUNTER 2021-11-02 06:14 | Day surgery (SDC) | payer BC, OTHER ==
[2021-11-01 09:14] VITALS: BMI 54.9
[~2021-11-02 06:14] MED LIST changes: +LIDOCAINE 1% (10MG/ML) FOR IV START INTRADERMA PRN
[2021-11-02 06:43] VITALS: BP 1235/62; PULSE 70; RESP 16; TEMP 97.9
--- NOTE | 2021-11-02 07:27 | P.PN ---
Subjective Progress Note Date: 11/02/21 This is 51 years old female who was scheduled to have bilateral facet block at C5- 6, C6- 7, today in the preop holding area patient was reporting that she had severe neck pain and headache , and she had some shoulder pain on the right side, patient denies any motor or sensory deficit, patient diagnosed with cervical spondylosis with cervical facet arthropathy, and also patient had cervical foraminal stenosis and cervical degenerative disc disease, recently we have done cervical epidural steroid injection at C7-T1 patient reported 0 benefit from it, and she continued to have severe neck pain and headache which is increased with any neck movement, denies any fever or night sweats she denies any change in the bowel movement or urination Objective - Vital Signs Vital signs: Vital Signs Temp 97.9 F 11/02/21 06:41 Pulse 70 11/02/21 06:41 Resp 16 11/02/21 06:41 BP 1235/62 11/02/21 06:41 Pulse Ox 95 11/02/21 06:41 FiO2 Intake & Output 11/01/21 11/02/21 11/02/21 18:59 06:59 18:59 Weight 149.685 kg 155.8 kg - Exam Physical Examinations : -Constitutiona : Cooperative , not in acute distress . -HEENT : nech : supple , no Lymphadenopathy , normal thyroid size . : eyes : no ptosis , no icterus, no photophobia . - neurologic : Cranial nerve II to XII intact , no focal neurological deffecit . -psychatric : alert , oriented X 3 , appropriate affect , intact judgment and insight . -Lymphatic : no Lymphadenopathy . - musculoskeltal : Cervical Spine motor stregnth in the deltoid and biceps, normal right side , normal Left side motor stregnth biceps and the wrist extensors normal right side ,normal left side . motor stregnth in the triceps muscle . normal Right side , normal Left side deep tendon reflexes normal at the biceps , normal at Brachioradialis , normal at triceps. cervical facet loading test: Positive Bilaterally Spurling test= positive Right , positive left. Neck distraction test= positive Right , positive left. Kamari sign= positive right, positive left . Abduction and rotation of the right shoulder associated with severe pain. Lumber spine moter stegnth lower extremities ,thigh and legs 5/5 Right side , 5/5 Left side. MRI of the cervical spine = multilevel cervical facet arthropathy and multilevel cervical foraminal stenosis and cervical degenerative disc disease from C2 3, C3 4, C4 5, C5 6, C6 7, C7-T1. Assessment and plan=1-cervical spondylosis with cervical facet arthropathy without myelopathy. 2-cervical degenerative disc disease. 3-cervical foraminal stenosis. 4-Right shoulder arthralgia. Patient had no benefit from cervical epidural steroid injection done recently. She was scheduled to have diagnostic medial branch block at C5-6 and C6-7, and because the pain director law enforcement at most of the pain is coming from the upper component of the facet joint, the patient could benefit more from doing diagnostic medial branch block cervical area from C2 3 and C3-4, and because this has to be approved by her insurance, we will cancel the procedure today and patient will be rescheduled for diagnostic medial branch block cervical area at C2-3, C3-4 bilaterally after we get insurance approval, and after we finished the treatment of her neck, and this patient continue to have right shoulder pain we can refer her to orthopedic surgeon for evaluation
== END 2021-11-02 07:29 | disposition home or self-care (01) ==
LOC: ORPAIN 06:14
PROVIDERS: ATTEND Specialist
DX: M47.812 Spondylosis without myelopathy or radiculopathy, cervical region (principal); Z53.20 Procedure and treatment not carried out because of patient's decision for unspecified reasons; M48.02 Spinal stenosis, cervical region; M50.30 Other cervical disc degeneration, unspecified cervical region; Z88.0 Allergy status to penicillin; Z88.2 Allergy status to sulfonamides; Z88.3 Allergy status to other anti-infective agents; Z91.041 Radiographic dye allergy status

== ENCOUNTER 2021-12-21 07:05 | Day surgery (SDC) | payer BC, OTHER ==
[2021-12-21 07:25] VITALS: RESP 16; TEMP 97.8
[2021-12-21] MEDS ORDERED: ROPIVACAINE 5 MG/ML 20 ML AMPULE ONE (07:40)
[2021-12-21] MEDS ORDERED: methylPREDNISolone ACETATE 40 MG/ML 1 ML VIAL ONE (07:40)
--- NOTE | 2021-12-21 08:18 | P.PCN ---
Date of Procedure: 12/21/21 Procedure(s) Performed: PREOPERATIVE DIAGNOSIS: 1-Cervical Spondylosis with Facet Arthropathy.without myelopathy. 2-cervical degenerative disc disease POSTOPERATIVE DIAGNOSIS: Same as preoperative diagnosis. PROCEDURES: Diagnostic bilateral C2 ,C3, C4 medial branch blocks, with fluo roscopic guidance (fluoroscopy images available in radiology department ) ( to target the facet joint at bilateral C2-3 ,C3-4 )# 1st ANESTHESIA: Monitored anesthesia care as per anesthesia department. EBL: Minimal PROCEDURE INDICATION: The patient with neck pain secondary to cervical arthropathy unresponsive to more conservative treatments. PROCEDURE DESCRIPTION / TECHNIQUE: The patient was seen and identified in the preoperative area. Risks, benefits, complications, and alternatives were discussed with the patient, the patient agreed to proceed with the procedure and signed the consent. IV was started. Vital signs remained stable throughout the procedure. Patient was taken to the OR and time out was completed. The patient was placed in thesupine position on the procedure table. The cervical area was prepped and draped in the usual sterile fashion. Critical pause was taken. Vital signs were closely monitored during the procedure. Conscious sedation was used during the procedure to decrease patients anxiety. Using cross-table lateral fluoroscopy, the centroid of the trapezoid of right C2 ,C3, C4 was identified, marked, and localized with 1% lidocaine 1 ml at each level for skin and Sub Q infiltrations . Subsequently, a 22 G 3 spinal needle was advanced guided by fluoroscopy to the centroid of the trapezoid of Right C2 ,C3, C4 , [place] tip position was confirmed at the centroid of the trapezoids of Right C2 ,C3 , C4 with anteroposterior fluoroscopy. Subsequently, 1.5 ml of preservative-free Ropivacaine 0.5% mixed with Depo- Medrol 20 mg and half ml of the mixture was injected after negative aspiration for blood and CSF. [place] was then removed intact the same procedure was repeated at the left C2 ,C3 , C4 levels. COMPLICATIONS: No acute complications. DISPOSITION / PLANS: The patient was placed in a supine position and transferred to the recovery area in a stable condition for observation and was discharged from the recovery room after meeting discharge criteria. Home discharge instructions given to the patient by the staff. The patient was reexamined prior to discharge. The patient will schedule a follow up in the clinic in 2-4 weeks.
[2021-12-21] MEDS ORDERED: IV FLUID CONTINUATION 1,000 ML IV ONE (08:22)
--- NOTE | 2021-12-21 09:03 | FL ---
Intraoperative/procedural fluoroscopic services were provided. Total fluoroscopy time is 46 seconds w ith a total of 4 submitted images to PACS. Please see the operative/procedural note for further detai ls.
[2021-12-21 09:07] VITALS: BP 127/84; PULSE 58
[2021-12-21] MEDS ORDERED: MIDAZOLAM 2 MG/2 ML VIAL ONE (13:24)
[2021-12-21] MEDS ORDERED: fentaNYL (PF) 50 MCG/ML 2 ML AMP ONE (13:24)
== END 2021-12-21 09:02 | disposition home or self-care (01) ==
LOC: ORPAIN 07:05
PROVIDERS: ATTEND Specialist
DX: M47.812 Spondylosis without myelopathy or radiculopathy, cervical region (principal); M50.31 Other cervical disc degeneration, high cervical region; I10 Essential (primary) hypertension; E78.5 Hyperlipidemia, unspecified; K21.9 Gastro-esophageal reflux disease without esophagitis
CPT/HCPCS: 81025; 64490; 64491; J2250; J1030; J3010; J2795

== ENCOUNTER → 2022-07-17 | Outpatient (CLI) | payer BC, OTHER ==
--- NOTE | 2022-07-17 07:29 | MM ---
Reason for Exam: Clinical finding. Last mammogram was performed 1 year(s) and 6 month(s) ago. Patient History: Menarche at age 9. First Full-Term at age 20. Perimenopausal. Patient used Hormonal Contraceptives for 10 years. 2000, Benign Excisional Biopsy on the left side. Last menstrual period: 06/11/2022 Risk Values: Makeda 5 year model risk: 1.2%. NCI Lifetime model risk: 10.0%. Prior Study Comparison: 02/01/2015 Bilateral Screening Mammogram, [facility]. 02/01/2019 Bilateral Screening Mammogram, [facility]. 01/15/2021 Bilateral Screening Mammogram, [facility]. Tissue Density: There are scattered fibroglandular densities. Findings: Analyzed By CAD. No finding to correlate with palpable abnormality in left breast. No new suspicious masses, calcifications or distortions. Overall Assessment: Incomplete: need additional imaging evaluation, BI-RAD 0 Management: Diagnostic Breast Ultrasound of the left breast. Results were given to the patient verbally at the time of exam. Patient should continue monthly self-breast exams. A clinical breast exam by your physician is recommended on an annual basis. This exam should not preclude additional follow-up of suspicious palpable abnormalities. Note on Makeda scores and lifetime risk: 1. A Makeda score greater than 3% is considered moderate risk. If this is the case, consider specialist referral to assess eligibility for a risk reducing agent. 2. If overall lifetime risk for the development of breast cancer is 20% or higher, the patient may qualify for future screening with alternating mammogram and breast MRI. Electronically signed and approved by: Dennis Kearney DO
--- NOTE | 2022-07-17 08:10 | USB ---
Reason for Exam: Clinical finding. Patient History: Menarche at age 9. First Full-Term at age 20. Perimenopausal. Patient used Hormonal Contraceptives for 10 years. 2000, Benign Excisional Biopsy on the left side. Risk Values: Makeda 5 year model risk: 1.2%. NCI Lifetime model risk: 10.0%. Technique: Method: Targeted. Prior Study Comparison: 02/01/2015 Bilateral Screening Mammogram, [facility]. 02/01/2019 Bilateral Screening Mammogram, [facility]. 01/15/2021 Bilateral Screening Mammogram, [facility]. Findings: The area of palpable concern of the left breast, the axilla of the left breast and the retroareolar of the left breast were scanned. Imaged: Ultrasound imaging of: Area of concern, retroareolar region and axilla. No evidence for organizing fluid collection or mass.Imaged: Ultrasound imaging of: Area of concern, retroareolar region and axilla. No evidence for organizing fluid collection or mass. Indeterminate lymph node present in the axilla with some cortical thickening not in the area of palpable abnormality. Overall Assessment: Benign, BI-RAD 2 Management: Screening Mammogram of both breasts in 1 year. A clinical breast exam by your physician is recommended on an annual basis and results should be correlated with mammographic findings. This exam should not preclude additional follow-up of suspicious palpable abnormalities. Results were given to the patient verbally at the time of exam. Electronically signed and approved by: Dennis Kearney DO
== END | disposition home or self-care (01) ==
LOC: RADMAMWWP 06:57
PROVIDERS: ATTEND Family Medicine
DX: N63.20 Unspecified lump in the left breast, unspecified quadrant (principal)
CPT/HCPCS: 77062; 77066

== ENCOUNTER → 2022-10-11 | Outpatient (CLI) | payer BC, OTHER ==
--- NOTE | 2022-10-11 19:42 | MR ---
EXAMINATION TYPE: MR lumbar spine wo con DATE OF EXAM: 10/11/2022 7:03 PM COMPARISON: None. CLINICAL INDICATION: Female, 52 years old with history of M54.50, M51.36 R06.02 I26.99; Lower Back Pa in x2 years and radiates to hips TECHNIQUE: Multi planar, multi sequence imaging was performed utilizing: T1-weighted, T2-weighted, a nd turbo inversion recovery imaging of the lumbar spine. IV Contrast: None. FINDINGS: Alignment: The lumbar vertebral bodies have preserved heights and alignment. Cord: The conus medullaris and the distal spinal cord appear unremarkable with regards to their signa l intensity and morphology. Bones/Discs: Degeneration changes worse at L5-S1 with Modic endplate changes and disc space narrowing and some reactive bony edema.. Facet joint arthropathy throughout the spine. Reactive edema is also seen within the facet joints at this level right greater than left. High T1/high T2 signal T10 vertebral body hemangioma. T12-L1: No evidence of significant spinal canal stenosis or neural foraminal stenosis. L1-L2: No evidence of significant spinal canal stenosis or neural foraminal stenosis. L2-L3: No evidence of significant spinal canal stenosis or neural foraminal stenosis. L3-L4: Disc bulge and facet joint arthropathy result in mild spinal canal and mild bilateral neural f oraminal stenosis. L4-L5: No evidence of significant spinal canal stenosis or neural foraminal stenosis. L5-S1: The disc is rounded posterior morphology without significant spinal canal stenosis. Facet join t arthropathy with mild to moderate neural foraminal stenosis. No significant spinal canal or neural foraminal stenosis in the remainder of the visualized levels. Other findings: None. IMPRESSION: 1. No definitive evidence of disc herniation or significant spinal canal stenosis. 2. Multilevel disc degeneration with associated osteoarthritic changes worse at L5-S1 with mild to m oderate bilateral neural foraminal stenosis.
--- NOTE | 2022-10-12 14:57 | CT ---
EXAMINATION TYPE: CT chest wo con CT DLP: 981 mGycm, Automated exposure control for dose reduction was used. DATE OF EXAM: 10/11/2022 6:16 PM COMPARISON: Chest radiograph from 08/09/2022 CT abdomen pelvis 05/12/2014 CLINICAL INDICATION:Female, 52 years old with history of M54.50, M51.36 R06.02 I26.99; [facility], follow up for SOB TECHNIQUE: Multiple axial images were obtained through the chest without IV contrast. Lack of IV or o ral contrast limits evaluation of solid and hollow organ viscera. . Coronal and sagittal reformats re viewed. FINDINGS: LUNGS/ PLEURA: No pleural effusion, pneumothorax, or focal consolidation. No suspicious pulmonary nod ule or mass. AIRWAY: Patent and unremarkable.. HEART: Size within normal limits. No pericardial effusion. MEDIASTINUM: No pathologically enlarged lymph nodes. VASCULATURE: No aortic aneurysm. MUSCULOSKELETAL: Mild disc degeneration changes are present throughout the thoracolumbar spine. No ac [place] osseous abnormality. SOFT TISSUES/LYMPH NODES: Unremarkable. LOWER NECK: No significant findings. UPPER ABDOMEN: Stable benign hypodense 1.6 cm lesion within the right hepatic lobe . Nonobstructive l eft 1 cm calculus. IMPRESSION: 1. No acute thoracic process. 2. Nonobstructive left renal calculus.
== END | disposition home or self-care (01) ==
LOC: RADMRIMAIN 17:45
PROVIDERS: ATTEND Family Medicine
DX: I26.99 Other pulmonary embolism without acute cor pulmonale (principal); N20.0 Calculus of kidney; M47.816 Spondylosis without myelopathy or radiculopathy, lumbar region; M99.73 Connective tissue and disc stenosis of intervertebral foramina of lumbar region; M51.36 Other intervertebral disc degeneration, lumbar region
CPT/HCPCS: 71250; 72148

== ENCOUNTER → 2022-11-27 | Outpatient (CLI) | payer BC, OTHER ==
--- NOTE | 2022-11-27 15:03 | NM ---
EXAMINATION TYPE: NM bone/joint limited DATE OF EXAM: 11/27/2022 COMPARISON: NONE CLINICAL INDICATION: Female, 52 years old with history of S23.41D SPRAIN OF CHONDROSTERNAL JOINT R07 .89; TECHNIQUE: After the intravenous administration of 25.9 mCi Tc 99m MDP. Images acquired 3 hours pos t injection. Multiple views of the chest and upper abdomen are submitted. Abnormal uptake involving the shoulder greater on the right may be post arthritic. There is mild increased asymmetric uptake along the lower margin of the right sternal costal junction . Mild intensity uptake throughout the lower thoracic and lumbar spine likely degenerative. IMPRESSION: 1. No suspicious uptake noted along the left sternum/sternal costal junction. 2. Mild intensity uptake along the lower right sternum of doubtful significance.
== END | disposition home or self-care (01) ==
LOC: RADNMMAIN 10:21
PROVIDERS: ATTEND Family Medicine
DX: S23.421D Sprain of chondrosternal joint, subsequent encounter (principal); R07.89 Other chest pain; X58.XXXD Exposure to other specified factors, subsequent encounter
CPT/HCPCS: 78300; A9503

== ENCOUNTER → 2022-12-04 | Outpatient (CLI) | payer BC, OTHER ==
--- NOTE | 2022-12-04 14:54 | P.PAINPG ---
Objective - Vital Signs Vital signs: Intake & Output 12/03/22 12/04/22 12/04/22 18:59 06:59 18:59 Weight 131.542 kg PQRS Measure Charge Sheet Comment: A 52 yr old female w at side with a history of severe and chronic LBP secondary to lumbar DDD and spondylosis with facet arthropathy without myelopathy presents today for LBP evaluation. Pain level is provoked at 8/10 in intensity, constant, localized in the lumbar spine, sharp in character w shooting towards the BLEs. Pain is provoked by sitting. Pain is alleviated with heat, medications, repositioning and rest. Oswestry axial pain score at 18. Interventional pain procedures completed include BL MBB C2-C4 x1, NADIA C6-C7 x2 Patient is currently on [place] 7.5/325mg Patient denies any side effects of the medication(s), denies excessive drowsiness or sleepiness, denies suicidal ideation and reports that the current pain medication is helping to control the pain and improve activities of daily living. Patient denies any motor or sensory deficits. Patient denies any fever or night sweats, denies any change in the bowel movements or urination. Physical Examination: -Constitutional: Cooperative. Not in acute distress . - Neurologic: Cranial nerve II to XII intact. No focal neurological defici ts. - Psychatric: Alert & oriented x 3. Matching mood & appropriate affect. Judgment and insight intact. - Musculoskeletal: Cervical spine: Muscle bulk/ tone/ strength in the bilateral upper extremities normal Vertebral body tenderness to palpation over Spurling test positive Distraction test positive Facet loading test positive TTP Thoracic spine Muscle bulk / tone/ strength in the bilateral paraspinal muscles normal Vertebral body tender to palpation over Facet loading test positive TTP Lumbar spine: Motor bulk/ tone/ strength lower extremities , thigh and legs : 5/5 Deep tendon reflexes : Normal Knee Jerk. Normal Ankle Jerk . Vertebral body tenderness to palpation over Hernández Test positive Lumbar Facet Loading Test positive Straight Leg Raise: positive at 30 degrees right side/ left side Gaenslen's Test positive Sacral spine : Severe tenderness over the Sacroiliac joint: right side / left side Range of motion: Flexion of the lumbar spine <60 degrees Range of motion: Extension of the lumbar spine <20 degrees Gaenslen's Test positive right side / left side Queenie test: positive right side / left side Thigh Thrust Test positive right side / left side Sacral Thrust Test positive right side / left side Assessment and plan: Chronic LBP secondary to lumbar DDD, spondylosis with facet arthropathy without myelopathy Recommendation of PT x 6 wks M51.36. Risks, benefits discussed and pt verbalized understanding. RTC in 6 wks for a re evaluation. All questions answered. I have spent less than 30 minutes on patient care today. Dr Lacy was available by phone for the evaluation of this patient. The time was used to review the medical records including relevant urine studies and Prescription history (MAPs), review of the available imaging, evaluation and examination of the patient, coordination of care with the medical staff and if applicable referring physicians, as well as creation of the medical record PQRS Narrative: Smoking Status Former smoker Hx Alcohol Use (MH) No Home Medications: Ambulatory Orders Metoprolol Succinate [Toprol XL] 100 mg PO QAM 04/28/14 Omeprazole [PriLOSEC] 20 mg PO QAM 04/28/14 Sertraline HCl 100 mg PO QAM 04/28/14 Zolpidem Tartrate 10 mg PO HS 04/28/14 Cyanocobalamin [Vitamin B-12] 500 mcg PO DAILY@1200 07/05/14 Cholecalciferol [Vitamin D3 (25 Mcg = 1000 Iu)] 125 mcg PO DAILY 06/08/20 Ibuprofen [Motrin] 600 mg PO Q8HR PRN 06/08/20 Oxybutynin Chloride 5 mg PO BID 06/08/20 Vitamin C/Biotin [Hair, Skin and Nails] 2 tab PO DAILY 06/08/20 Vitamin E 400 unit PO DAILY 06/08/20 buPROPion XL [Wellbutrin Xl] 300 mg PO DAILY 06/08/20 flaxseed oiL [[place]-3 Flaxseed Oil] 1 dose PO DAILY 06/08/20 hydroCHLOROthiazide [Hydrodiuril] 25 mg PO DAILY 06/08/20 amLODIPine [Norvasc] 5 mg PO DAILY 12/19/21 Controlled Substance Measures - Controlled Substance Measures Is patient prescribed a controlled substance at discharge?: No
[2022-12-04 14:55] VITALS: BP 138/88; PULSE 79; RESP 15; TEMP 98.7
== END ==
LOC: PNWHC3 13:18
PROVIDERS: ATTEND Specialist
DX: M51.36 Other intervertebral disc degeneration, lumbar region (principal); S23.421D Sprain of chondrosternal joint, subsequent encounter; G89.29 Other chronic pain; Z87.891 Personal history of nicotine dependence; Z91.041 Radiographic dye allergy status; Z88.0 Allergy status to penicillin; Z88.2 Allergy status to sulfonamides; Z88.8 Allergy status to other drugs, medicaments and biological substances; X58.XXXD Exposure to other specified factors, subsequent encounter
CPT/HCPCS: 99211

== ENCOUNTER → 2023-01-09 | Outpatient (CLI) | payer BC, OTHER ==
[2023-01-09 09:35] VITALS: BP 142/77; PULSE 95; RESP 15; TEMP 97.8
--- NOTE | 2023-01-09 10:30 | P.PAINPG ---
PQRS Measure Charge Sheet Comment: A 52 yr old female w at side with a history of severe and chronic LBP secondary to lumbar DDD and spondylosis with facet arthropathy without myelopathy presents today for LBP evaluation. MRI results reviewed w pt. Pain level is provoked at 8/10 in intensity, constant, localized in the lumbar spine, predominantly axial, sharp in character w shooting towards the BL thighs. Pain is provoked by sitting. Pain is alleviated with PT x 4 wks which she is currently in, heat, ice, medications, repositioning and rest. Oswestry axial pain score at 18. Interventional pain procedures completed include BL MBB C2-C4 x1, NADIA C6-C7 x2 Patient is currently on [place] 7.5/325mg Patient denies any side effects of the medication(s), denies excessive drowsiness or sleepiness, denies suicidal ideation and reports that the current pain medication is helping to control the pain and improve activities of daily living. Patient denies any motor or sensory deficits. Patient denies any fever or night sweats, denies any change in the bowel movements or urination. Physical Examination: -Constitutional: Cooperative. Not in acute distress . - Neurologic: Cranial nerve II to XII intact. No focal neurological deficits. - Psychatric: Alert & oriented x 3. Matching mood & appropriate affect. Judgment and insight intact. - Musculoskeletal: Cervical spine: Muscle bulk/ tone/ strength in the bilateral upper extremities normal Vertebral body tenderness to palpation over Spurling test positive Distraction test positive Facet loading test positive TTP Thoracic spine Muscle bulk / tone/ strength in the bilateral paraspinal muscles normal Vertebral body tender to palpation over Facet loading test positive TTP Lumbar spine: Motor bulk/ tone/ strength lower extremities , thigh and legs : 5/5 Deep tendon reflexes : Normal Knee Jerk. Normal Ankle Jerk . Vertebral body tenderness to palpation over L3 Hernández Test positive over L3-L4 Lumbar Facet Loading Test positive Straight Leg Raise: positive at 30 degrees right side/ left side Gaenslen's Test positive Sacral spine : Severe tenderness over the Sacroiliac joint: right side / left side Range of motion: Flexion of the lumbar spine <60 degrees Range of motion: Extension of the lumbar spine <20 degrees Gaenslen's Test positive right side / left side Queenie test: positive right side / left side Thigh Thrust Test positive right side / left side Sacral Thrust Test positive right side / left side Imaging: MRI noncontrast of the lumbar spine from 10/11/22 reviewed Assessment and plan: Chronic LBP secondary to lumbar DDD, spondylosis with facet arthropathy without myelopathy Recommendation of NADIA L3-L4 #1. May need a series of injections for optimal pain relief. Risks, benefits of procedure discussed and pt verbalized understanding. Protocol for discontinuation/ continuation of medications surrounding procedure discussed. All questions answered. I have spent less than 30 minutes on patient care today. Dr Lacy was available by phone for the evaluation of this patient. The time was used to review the medical records including relevant urine studies and Prescription history (MAPs), review of the available imaging, evaluation and examination of the patient, coordination of care with the medical staff and if applicable refe rring physicians, as well as creation of the medical record PQRS Narrative: Smoking Status Former smoker Hx Alcohol Use (MH) No Home Medications: Ambulatory Orders Metoprolol Succinate [Toprol XL] 100 mg PO QAM 04/28/14 Omeprazole [PriLOSEC] 20 mg PO QAM 04/28/14 Sertraline HCl 100 mg PO QAM 04/28/14 Zolpidem Tartrate 10 mg PO HS 04/28/14 Cyanocobalamin [Vitamin B-12] 500 mcg PO DAILY@1200 07/05/14 Cholecalciferol [Vitamin D3 (25 Mcg = 1000 Iu)] 125 mcg PO DAILY 06/08/20 Ibuprofen [Motrin] 600 mg PO Q8HR PRN 06/08/20 Oxybutynin Chloride 5 mg PO BID 06/08/20 Vitamin C/Biotin [Hair, Skin and Nails] 2 tab PO DAILY 06/08/20 Vitamin E 400 unit PO DAILY 06/08/20 buPROPion XL [Wellbutrin Xl] 300 mg PO DAILY 06/08/20 flaxseed oiL [[place]-3 Flaxseed Oil] 1 dose PO DAILY 06/08/20 hydroCHLOROthiazide [Hydrodiuril] 25 mg PO DAILY 06/08/20 amLODIPine [Norvasc] 5 mg PO DAILY 12/19/21 Controlled Substance Measures - Controlled Substance Measures Is patient prescribed a controlled substance at discharge?: No
== END ==
LOC: PNWHC3 08:42
PROVIDERS: ATTEND Specialist
DX: M51.36 Other intervertebral disc degeneration, lumbar region (principal); M47.816 Spondylosis without myelopathy or radiculopathy, lumbar region; G89.29 Other chronic pain; Z87.891 Personal history of nicotine dependence; Z91.041 Radiographic dye allergy status; Z88.0 Allergy status to penicillin; Z88.2 Allergy status to sulfonamides; Z88.1 Allergy status to other antibiotic agents
CPT/HCPCS: 99211

== ENCOUNTER 2023-01-23 12:27 | Day surgery (SDC) | payer BC, OTHER ==
[~2023-01-23 12:27] MED LIST changes: -LIDOCAINE 1% (10MG/ML) FOR IV START INTRADERMA PRN
[2023-01-23] MEDS ORDERED: methylPREDNISolone ACETATE 80 MG/ML 1 ML VIAL ONE (13:02)
[2023-01-23 13:03] VITALS: RESP 16; TEMP 98.4
--- NOTE | 2023-01-23 13:15 | P.PCN ---
Date of Procedure: 01/23/23 Procedure(s) Performed: PREOPERATIVE DIAGNOSIS: 1- Lumbar Degenerative Disc Diseases 2-Lumbar spondylosis with Facet arthropathy without myelopathy. 3-lumbar spinal stenosis POSTOPERATIVE DIAGNOSIS: 1-lumbar degenerative disc disease. 2-lumbar spondylosis with facet arthropathy without myelopathy. 3-lumbar spinal stenosis. PROCEDURE 1. Lumbar epidural steroid injection under fluoroscopic guidance at the L3-4 level. (Fluoroscopy imaging was available in radiology department). ANESTHESIA: Lidocaine 1% 3 and then only. EBL: Minimal PROCEDURE INDICATION: The patient with low back pain and radiculitis symptoms unresponsive to conservative treatment. Fluoroscopy was used to optimize visualization of the needle placement and to maximize safety. PROCEDURE DESCRIPTION / TECHNIQUE: The patient was seen and identified in the preoperative area. Risks, benefits, complications including but not limited to infections ,bleeding ,allergic reaction to the medications ,nerve damage and not complete pain releife , and alternatives were discussed with the patient. The patient agreed to proceed with the procedure and signed the consent, and vital signs were stable. Patient was taken to the OR and time out was completed. The patient was placed in the prone position on procedure table and a pillow was placed under the abdomen to reduce lumbar lordosis. The lumbosacral area was prepped and draped in the usual sterile fashion.ere closely monitored during the procedure. Vital signs was monitered during the entire procedure. Using anterior-posterior fluoroscopy, the L3-4 interlaminar space was identified and the skin over this site was marked and then infiltrated with 1% lidocaine subcutaneously. Subsequently, a 18-gauge 6 inches long Tuohy epidural needle was inserted and advanced toward the epidural space using the ``Loss of resistance technique and guided by AP and lateral fluoroscopy, after negative aspiration for blood and CSF and in the absence of paresthesias. Again after negative aspiration, a 6 ml mixture containing 80 mg of Depo-medrol ( Pr eservetive Free ), and 2 ml of preservative free Normal Saline, and 2 ml of preservative free lidocaine 1% solution was injected and a washout of epidurogram was seen. Needle was withdrawn intact, skin was cleansed, and bandages were applied. COMPLICATIONS: None DISPOSITION / PLANS: The patient was placed in a supine position and transferred to the recovery area in a stable condition for observation. There was no evidence of lower extremity motor or sensory deficit after the procedure. Patient was discharged from the recovery room after meeting discharge criteria. Home discharge instructions were given to the patient by the staff. The patient was reexamined prior to discharge. The patient will schedule a follow up in the clinic in 2-4 weeks. note= Isovue was not injected, because patient had an ALLERGY to IVP dye.
--- NOTE | 2023-01-23 13:28 | FL ---
EXAMINATION TYPE: FL guided pain mgmt statistic DATE OF EXAM: 01/23/2023 HISTORY: Fluoroscopy time Total dose area product (DAP) in uGy*m?, mGy*cm? (or similar): 0.54437 IMPRESSION: 1. Fluoroscopy time.
[2023-01-23 13:48] VITALS: BP 118/78; PULSE 73
== END 2023-01-23 13:39 | disposition home or self-care (01) ==
LOC: ORPAIN 12:27
PROVIDERS: ATTEND Specialist
DX: M51.16 Intervertebral disc disorders with radiculopathy, lumbar region (principal); M47.26 Other spondylosis with radiculopathy, lumbar region; M48.061 Spinal stenosis, lumbar region without neurogenic claudication; Z88.2 Allergy status to sulfonamides; Z88.0 Allergy status to penicillin; Z88.1 Allergy status to other antibiotic agents; Z91.041 Radiographic dye allergy status
CPT/HCPCS: 81025; 62323; J1040

== ENCOUNTER → 2023-03-05 | Outpatient (CLI) | payer BC, OTHER ==
--- NOTE | 2023-03-05 14:34 | P.PAINPG ---
PQRS Measure Charge Sheet Comment: A 52 yr old female w at side with a history of severe and chronic LBP secondary to lumbar DDD and spondylosis with facet arthropathy without myelopathy presents today for LBP evaluation s/p NADIA L3-L4 #1. Pt states she experienced 85% pain relief x 3 wks s/p procedure. Pain level is provoked at 8/10 in intensity, constant, localized in the lumbar spine, predominantly axial, burning in character w shooting towards the R thigh. Pain is provoked by sitting. Pain is alleviated with PT x 4 wks which she is currently in, heat, ice, medications, repositioning and rest. Oswestry axial pain score at 18. Interventional pain procedures completed include BL MBB C2-C4 x1, NADIA C6-C7 x2, NADIA L3-L4 x1 Patient is currently on [place] 7.5/325mg Patient denies any side effects of the medication(s), denies excessive drowsiness or sleepiness, denies suicidal ideation and reports that the current pain medication is helping to control the pain and improve activities of daily living. Patient denies any motor or sensory deficits. Patient denies any fever or night sweats, denies any change in the bowel movements or urination. Physical Examination: -Constitutional: Cooperative. Not in acute distress . - Neurologic: Cranial nerve II to XII intact. No focal neurological deficits. - Psychatric: Alert & oriented x 3. Matching mood & appropriate affect. Judgment and insight intact. - Musculoskeletal: Cervical spine: Muscle bulk/ tone/ strength in the bilateral upper extremities normal Vertebral body tenderness to palpation over Spurling test positive Distraction test positive Facet loading test positive TTP Thoracic spine Muscle bulk / tone/ strength in the bilateral paraspinal muscles normal Vertebral body tender to palpation over Facet loading test positive TTP Lumbar spine: Motor bulk/ tone/ strength lower extremities , thigh and legs : 5/5 Deep tendon reflexes : Normal Knee Jerk. Normal Ankle Jerk . Vertebral body tenderness to palpation over L5 Hernández Test positive over L5-S1 Lumbar Facet Loading Test positive Straight Leg Raise: positive at 30 degrees right side/ left side Gaenslen's Test positive Sacral spine : Severe tenderness over the Sacroiliac joint: right side / left side Range of motion: Flexion of the lumbar spine <60 degrees Range of motion: Extension of the lumbar spine <20 degrees Gaenslen's Test positive right side / left side Queenie test: positive right side / left side Thigh Thrust Test positive right side / left side Sacral Thrust Test positive right side / left side Imaging: MRI noncontrast of the lumbar spine from 10/11/22 reviewed Assessment and plan: Chronic LBP secondary to lumbar DDD, spondylosis with facet arthropathy without myelopathy Recommendation of NADIA L5-S1 #2. May need a series of injections for optimal pain relief. Risks, benefits of procedure discussed and pt verbalized understanding. Protocol for discontinuation/ continuation of medications surrounding procedure discussed. All questions answered. I have spent less than 30 minutes on patient care today. Dr Lacy was available by phone for the evaluation of this patient. The time was used to review the medical records including relevant urine studies and Prescription history (MAPs), review of the available imaging, evaluation and examination of the patient, coordination of care with the medical staff and if applicable referring physicians, as well as creation of the medical record PQRS Narrative: Smoking Status Former smoker Hx Alcohol Use (MH) No Home Medications: Ambulatory Orders Metoprolol Succinate [Toprol XL] 100 mg PO QAM 04/28/14 Omeprazole [PriLOSEC] 20 mg PO QAM 04/28/14 Sertraline HCl 100 mg PO QAM 04/28/14 Zolpidem Tartrate 10 mg PO HS 04/28/14 Cyanocobalamin [Vitamin B-12] 500 mcg PO DAILY@1200 07/05/14 Cholecalciferol [Vitamin D3 (25 Mcg = 1000 Iu)] 125 mcg PO DAILY 06/08/20 Ibuprofen [Motrin] 600 mg PO Q8HR PRN 06/08/20 Oxybutynin Chloride 5 mg PO BID 06/08/20 Vitamin C/Biotin [Hair, Skin and Nails] 2 tab PO DAILY 06/08/20 Vitamin E 400 unit PO DAILY 06/08/20 buPROPion XL [Wellbutrin Xl] 300 mg PO DAILY 06/08/20 flaxseed oiL [[place]-3 Flaxseed Oil] 1 dose PO DAILY 06/08/20 hydroCHLOROthiazide [Hydrodiuril] 25 mg PO DAILY 06/08/20 amLODIPine [Norvasc] 5 mg PO DAILY 12/19/21 diazePAM [Valium] 5 mg PO BID PRN 30 Days #2 tab 01/21/23 Controlled Substance Measures - Controlled Substance Measures Is patient prescribed a controlled substance at discharge?: No
[2023-03-05 14:38] VITALS: BP 133/83; PULSE 73; RESP 16
== END ==
LOC: PNWHC3 13:54
PROVIDERS: ATTEND Specialist
DX: M51.37 Other intervertebral disc degeneration, lumbosacral region (principal); M47.817 Spondylosis without myelopathy or radiculopathy, lumbosacral region; G89.29 Other chronic pain; Z88.8 Allergy status to other drugs, medicaments and biological substances; Z88.0 Allergy status to penicillin; Z88.2 Allergy status to sulfonamides; Z88.1 Allergy status to other antibiotic agents; Z87.891 Personal history of nicotine dependence
CPT/HCPCS: 99211

== ENCOUNTER 2023-04-01 11:47 | Day surgery (SDC) | payer BC, OTHER ==
[2023-04-01] MEDS ORDERED: methylPREDNISolone ACETATE 40 MG/ML 1 ML VIAL ONE (12:16)
--- NOTE | 2023-04-01 12:25 | P.PCN ---
Date of Procedure: 04/01/23 Description of Procedure: PREOPERATIVE DIAGNOSIS: lumbar radiculopathy POSTOPERATIVE DIAGNOSIS: Lumbar radiculopathy PROCEDURE 1. Lumbar epidural steroid injection under fluoroscopic guidance at the L5-S1 level. 2. Lumbar epidurogram. Imaging: Fluoroscopy was used, images where saved to the medical record ANESTHESIA: Local EBL: Minimal PROCEDURE INDICATION: The patient with low back pain and radiculitis symptoms unresponsive to conservative treatment. Fluoroscopy was used to optimize visualization of the needle placement and to maximize safety. PROCEDURE DESCRIPTION / TECHNIQUE: The patient was seen and identified in the preoperative area. Risks, benefits, complications including but not limited to infections, bleeding, allergic reaction to medications, nerve damage and incomplete pain relief, as well as alternatives to the procedure were discussed with the patient. The patient agree d to proceed with the procedure and signed the consent. IV was started if indicated above, and vital signs were stable. Patient was taken to the OR and time out was completed. The patient was placed in the prone position on procedure table and a pillow was placed under the abdomen to reduce lumbar lordosis. The lumbosacral area was prepped and draped in the usual sterile fashion. Vitals were closely monitored during the procedure. Using anterior-posterior fluoroscopy, the L5-S1 interlaminar space was identified and the skin over this site was marked and then infiltrated with 1% lidocaine subcutaneously. Subsequently, a 18-gauge 6 inch Tuohy epidural needle was inserted and advanced toward the epidural space using the Loss of resistance technique and guided by AP and lateral fluoroscopy. The correct needle position in the epidural space was verified using AP, lateral, and contralateral views since the patient was allergic to contrast dye none was used. Again after negative aspiration, a 3 ml mixture containing 40mg of depomedrol and 2 ml of preservative free Normal Saline was injected and a washout of epidurogram was seen. Needle was withdrawn intact, skin was cleansed, and bandages were applied. COMPLICATIONS: None DISPOSITION / PLANS: The patient was placed in a supine position and transferred to the recovery area in a stable condition for observation. There was no evid ence of lower extremity motor or sensory deficit after the procedure. Patient was discharged from the recovery room after meeting discharge criteria. Home discharge instructions were given to the patient by the staff. The patient was reexamined prior to discharge. The patient will follow up as directed.
[2023-04-01 12:34] VITALS: RESP 16; TEMP 96.7
--- NOTE | 2023-04-01 12:48 | FL ---
EXAMINATION TYPE: FL guided pain mgmt statistic DATE OF EXAM: 04/01/2023 HISTORY: Fluoroscopy time Total dose area product (DAP) in uGy*m?, mGy*cm? (or similar): 0.38103 IMPRESSION: 1. Fluoroscopy time.
[2023-04-01 13:04] VITALS: BP 127/83; PULSE 73
== END 2023-04-01 12:45 | disposition home or self-care (01) ==
LOC: ORPAIN 11:47
PROVIDERS: ATTEND Hospitalist
DX: M54.16 Radiculopathy, lumbar region (principal); Z88.0 Allergy status to penicillin; Z88.1 Allergy status to other antibiotic agents; Z88.2 Allergy status to sulfonamides; Z88.8 Allergy status to other drugs, medicaments and biological substances; Z91.041 Radiographic dye allergy status
CPT/HCPCS: 81025; 62323; J1030

== ENCOUNTER → 2023-05-07 | Outpatient (CLI) | payer BC, OTHER ==
[2023-05-07 14:34] VITALS: BP 138/78; PULSE 76; RESP 15; TEMP 98.5
--- NOTE | 2023-05-07 14:34 | P.PAINPG ---
Objective - Vital Signs Vital signs: Intake & Output 05/06/23 05/07/23 05/07/23 18:59 06:59 18:59 Weight 154.221 kg PQRS Measure Charge Sheet Comment: A 52 yr old female with a history of severe and chronic LBP secondary to lumbar DDD and spondylosis with facet arthropathy without myelopathy presents today for LBP evaluation s/p NADIA L5-S1 #2. Pt states she experienced 40% pain relief x 3 wks s/p procedure. Pain level is provoked at 6 /10 in intensity, constant, localized in the lumbar spine, predominantly axial, burning in character w shooting towards the buttocks. Pain is provoked by sitting > 30 min. Pain is alleviated with PT x 4 wks which she is currently in, heat, ice, medications, repositioning and rest. Oswestry axial pain score at 17. Interventional pain procedures completed include BL MBB C2-C4 x1, NADIA C6-C7 x2, NADIA L3-L4 x1 Patient is currently on [place] 7.5/325mg, Ibu Patient denies any side effects of the medication(s), denies excessive drowsiness or sleepiness, denies suicidal ideation and reports that the current pain medication is helping to control the pain and improve activities of daily living. Patient denies any motor or sensory deficits. Patient denies any fever or night sweats, denies any change in the bowel movements or urination. Physical Examination: -Constitutional: Cooperative. Not in acute distress . - Neurologic: Cranial nerve II to XII intact. No focal neurological deficits. - Psychatric: Alert & oriented x 3. Matching mood & appropriate affect. Judgment and insight intact. - Musculoskeletal: Cervical spine: Muscle bulk/ tone/ strength in the bilateral upper extremities normal Vertebral body tenderness to palpation over Spurling test positive Distraction test positive Facet loading test positive TTP Thoracic spine Muscle bulk / tone/ strength in the bilateral paraspinal muscles normal Vertebral body tender to palpation over Facet loading test positive TTP Lumbar spine: Motor bulk/ tone/ strength lower extremities , thigh and legs : 5/5 Deep tendon reflexes : Normal Knee Jerk. Normal Ankle Jerk . Vertebral body tenderness to palpation Hernández Test positive over Lumbar Facet Loading Test positive Straight Leg Raise: positive at 30 degrees right side/ left side Gaenslen's Test positive Sacral spine : Severe tenderness over the Sacroiliac joint: right side / left side Range of motion: Flexion of the lumbar spine <60 degrees Range of motion: Extension of the lumbar spine <20 degrees Gaenslen's Test positive right side / left side Queenie test: positive right side / left side Thigh Thrust Test positive right side / left side Sacral Thrust Test positive right side / left side Imaging: MRI noncontrast of the lumbar spine from 10/11/22 reviewed Assessment and plan: Chronic LBP secondary to lumbar DDD, spondylosis with facet arthropathy without myelopathy Recommendation of R SI injection #1. May need a series of injections for optimal pain relief. Risks, benefits of procedure discussed and pt verbalized understanding. Protocol for discontinuation/ continuation of medications surrounding procedure discussed. All questions answered. I have spent less than 30 minutes on patient care today. Dr Lacy was available by phone for the evaluation of this patient. The time was used to review the medical records including relevant urine studies and Prescription history (MAPs), review of the available imaging, evaluation and examination of the patient, coordination of care with the medical staff and if applicable referring physicians, as well as creation of the medical record - Pain Location Bilateral Lower Back Non-Pharmacological Interventions: Inactivity, Position/Reposition Pharmacological Interventions: Epidural PQRS Narrative: Smoking Status Former smoker Hx Alcohol Use (MH) No Home Medications: Ambulatory Orders Metoprolol Succinate [Toprol XL] 100 mg PO [facility] 04/28/14 Omeprazole [PriLOSEC] 20 mg PO [facility] 04/28/14 Sertraline HCl 100 mg PO [facility] 04/28/14 Zolpidem Tartrate 10 mg PO 04/28/14 Cyanocobalamin [Vitamin B-12] 500 mcg PO DAILY@1200 07/05/14 Cholecalciferol [Vitamin D3 (25 Mcg = 1000 Iu)] 75 mcg PO QAM 06/08/20 Vitamin C/Biotin [Hair, Skin and Nails] 2 tab PO QA 06/08/20 Vitamin E 400 unit PO QA 06/08/20 buPROPion XL [Wellbutrin Xl] 300 mg PO QA 06/08/20 flaxseed oiL [[place]-3 Flaxseed Oil] 1 dose PO QAM 06/08/20 hydroCHLOROthiazide [Hydrodiuril] 25 mg PO QA 06/08/20 amLODIPine [Norvasc] 5 mg PO QAM 12/19/21 Apremilast [Otezla] 30 mg PO BID 03/26/23 Gabapentin [Neurontin] 100 mg PO TID PRN 03/26/23 Ibuprofen [Motrin] 600 mg PO Q8HR PRN 30 Days #90 tab 05/07/23 Controlled Substance Measures - Controlled Substance Measures Is patient prescribed a controlled substance at discharge?: No
== END ==
LOC: PNWHC3 13:53
PROVIDERS: ATTEND Specialist
DX: M51.36 Other intervertebral disc degeneration, lumbar region (principal); M47.816 Spondylosis without myelopathy or radiculopathy, lumbar region; G89.29 Other chronic pain; Z87.891 Personal history of nicotine dependence; Z91.041 Radiographic dye allergy status; Z88.1 Allergy status to other antibiotic agents; Z88.0 Allergy status to penicillin; Z88.2 Allergy status to sulfonamides
CPT/HCPCS: 99211

== ENCOUNTER 2023-05-27 12:15 | Day surgery (SDC) | payer BC, OTHER ==
[2023-05-23 13:29] VITALS: BMI 57.0
[2023-05-27] MEDS ORDERED: methylPREDNISolone ACETATE 40 MG/ML 1 ML VIAL ONE (12:51)
[2023-05-27] MEDS ORDERED: ROPIVACAINE 5MG/ML 20ML VIAL ONE (12:51)
[2023-05-27 12:54] VITALS: TEMP 97.3
--- NOTE | 2023-05-27 13:02 | P.PCN ---
Date of Procedure: 05/27/23 Description of Procedure: Procedure: Sacroiliac joint injection right Preoperative diagnosis: Sacroiliitis Postoperative diagnosis: Sacroiliitis Imaging: Fluoroscopy was used, images where saved to the medical record Complications: none ANESTHESIA: local Description of the procedure: procedure risk and benefits discussed with the patient, including but not limited, risk of infection and bleeding, and allergic reaction to the medication and incomplete pain relief. Patient agreed and signed consent. Patient was taken to the room and placed in a prone position. Chlorhexidine was used to cleanse the skin. Under sterile conditions patient skin was anesthetized 1% lidocaine. Subcutaneous tissues were also anesthetized with a total 5 mL of 1% lidocaine. After that, a 22-gauge 5 inch spinal needle was advanced through the anesthetized location under fluoroscopic guidance. Needle was advanced into the inferior portion of the sacroiliac joint. IV contrast was used to confirm spread within the joint. After adequate spread was achieved, 2.5 ML's of 0.5% ropivacaine with 40 mg of depomedrol was injected into the joint (steroid split between both sides if bilateral). Patient tolerated the procedure well. Sent to the recovery room in stable condition. Patient will follow up as directed.
--- NOTE | 2023-05-27 13:27 | FL ---
EXAMINATION TYPE: FL guided pain mgmt statistic Intraoperative/procedural fluoroscopic services were provided. Total fluoroscopy time is 12.3 seconds with a total of 1 submitted images to PACS. Please s ee the operative/procedural note for further details. DAP: 0.68068 mGym2
[2023-05-27 13:40] VITALS: BP 125/70; PULSE 66; RESP 18
== END 2023-05-27 13:19 | disposition home or self-care (01) ==
LOC: ORPAIN 12:15
PROVIDERS: ATTEND Hospitalist
DX: M46.1 Sacroiliitis, not elsewhere classified (principal); I10 Essential (primary) hypertension; Z88.0 Allergy status to penicillin; Z88.8 Allergy status to other drugs, medicaments and biological substances; Z88.2 Allergy status to sulfonamides; Z91.048 Other nonmedicinal substance allergy status; Z79.1 Long term (current) use of non-steroidal anti-inflammatories (NSAID)
CPT/HCPCS: 81025; 27096; J1030; J2795

== ENCOUNTER → 2023-06-26 | Outpatient (CLI) | payer BC, OTHER ==
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
[2023-06-26 15:18] VITALS: BP 135/83; PULSE 63; RESP 16; TEMP 98
== END ==
LOC: PNWHC3 13:46
DX: M46.1 Sacroiliitis, not elsewhere classified (principal); M47.816 Spondylosis without myelopathy or radiculopathy, lumbar region; M47.812 Spondylosis without myelopathy or radiculopathy, cervical region; M79.18 Myalgia, other site; G89.29 Other chronic pain; Z91.041 Radiographic dye allergy status; Z88.1 Allergy status to other antibiotic agents; Z71.82 Exercise counseling; Z88.8 Allergy status to other drugs, medicaments and biological substances; Z88.0 Allergy status to penicillin; Z88.2 Allergy status to sulfonamides; Z87.891 Personal history of nicotine dependence
CPT/HCPCS: 99211

== ENCOUNTER 2023-08-07 12:31 | Day surgery (SDC) | payer BC, OTHER ==
[2023-08-05 16:15] VITALS: BMI 55.7
[2023-08-07 13:10] VITALS: TEMP 97.5
[2023-08-07] MEDS ORDERED: methylPREDNISolone ACETATE 80 MG/ML 1 ML VIAL ONE (14:19)
--- NOTE | 2023-08-07 14:25 | P.PCN ---
Date of Procedure: 08/07/23 Procedure(s) Performed: PREOPERATIVE DIAGNOSIS: 1- Lumbar Degenerative Disc Diseases 2-Lumbar spondylosis with Facet arthropathy without myelopathy. 3-lumbar spinal stenosis POSTOPERATIVE DIAGNOSIS: 1-lumbar degenerative disc disease. 2-lumbar spondylosis with facet arthropathy without myelopathy. 3-lumbar spinal stenosis. PROCEDURE 1. Lumbar epidural steroid injection under fluoroscopic guidance at the L5-S1 level. (Fluoroscopy imaging was available in radiology department). ANESTHESIA: Lidocaine 1% 3 and then only. EBL: Minimal PROCEDURE INDICATION: The patient with low back pain and radiculitis symptoms unresponsive to conservative treatment. Fluoroscopy was used to optimize visualization of the needle placement and to maximize safety. PROCEDURE DESCRIPTION / TECHNIQUE: The patient was seen and identified in the preoperative area. Risks, benefits, complications including but not limited to infections ,bleeding ,allergic reaction to the medications ,nerve damage and not complete pain releife , and alternatives were discussed with the patient. The patient agreed to proceed with the procedure and signed the consent, and vital signs were stable. Patient was taken to the OR and time out was completed. The patient was placed in the prone position on procedure table and a pillow was placed under the abdomen to reduce lumbar lordosis. The lumbosacral area was prepped and draped in the usual sterile fashion.ere closely monitored during the procedure. Vital signs was monitered during the entire procedure. Using anterior-posterior fluoroscopy, the L5-S1 interlaminar space was identified and the skin over this site was marked and then infiltrated with 1% lidocaine subcutaneously. Subsequently, a 18-gauge 6 inches long Tuohy epidural needle was inserted and advanced toward the epidural space using the ``Loss of resistance technique and guided by AP and lateral fluoroscopy, after negative aspiration for blood and CSF and in the absence of paresthesias. Again after negative aspiration, a 6 ml mixture containing 80 mg of Depo-medrol ( Preservet raymond Free ), and 2 ml of preservative free Normal Saline, and 2 ml of preservative free lidocaine 1% solution was injected and a washout of epidurogram was seen. Needle was withdrawn intact, skin was cleansed, and bandages were applied. COMPLICATIONS: None DISPOSITION / PLANS: The patient was placed in a supine position and transferred to the recovery area in a stable condition for observation. There was no evidence of lower extremity motor or sensory deficit after the procedure. Patient was discharged from the recovery room after meeting discharge criteria. Home discharge instructions were given to the patient by the staff. The patient was reexamined prior to discharge. The patient will schedule a follow up in the clinic in 2-4 weeks. note= Isovue was not injected, because patient had an ALLERGY to IVP dye.
--- NOTE | 2023-08-07 14:56 | FL ---
EXAMINATION TYPE: FL guided pain mgmt statistic DATE OF EXAM: 08/07/2023 HISTORY: Fluoroscopy time Total dose area product (DAP) in uGy*m?, mGy*cm? (or similar): 0.51770 IMPRESSION: 1. Fluoroscopy time.
[2023-08-07 14:57] VITALS: BP 110/62; PULSE 65; RESP 20
== END 2023-08-07 14:53 | disposition home or self-care (01) ==
LOC: ORPAIN 12:31
PROVIDERS: ATTEND Specialist
DX: M48.061 Spinal stenosis, lumbar region without neurogenic claudication (principal); M47.26 Other spondylosis with radiculopathy, lumbar region; M51.16 Intervertebral disc disorders with radiculopathy, lumbar region; Z88.2 Allergy status to sulfonamides; Z88.0 Allergy status to penicillin; Z88.1 Allergy status to other antibiotic agents; Z88.8 Allergy status to other drugs, medicaments and biological substances; Z79.1 Long term (current) use of non-steroidal anti-inflammatories (NSAID)
CPT/HCPCS: 81025; 62323; J1010

== ENCOUNTER → 2023-10-24 | Outpatient (CLI) | payer BC ==
[2023-10-24 18:36] LABS: Basophils # (A) 0.05 X 10*3/uL (0.00-0.10); Basophils % (A) 0.6 %; Eosinophils % (A) 2.4 %; HCT 42.7 % (37.2-46.3); HGB 13.5 g/dL (12.0-15.0); Lymphocytes # (A) 2.48 X 10*3/uL (0.90-5.00); MCH 28.5 pg (27.0-32.0); MCHC 31.6 g/dL (32.0-37.0); MCV 90.1 FL (80.0-97.0); Mean Platelet Volume 11.4 FL (9.5-12.2); Monocytes % (A) 9.7 %; NRBC Per 100 WBC 0 X 10*3/uL (0.00-0.01); Neutrophils # (A) 4.72 X 10*3/uL (1.80-7.70); Neutrophils % (A) 57.1 %; Platelet Count 246 X 10*3/uL (140-440); RBC 4.74 X 10*6/uL (4.10-5.20); WBC 8.27 X 10*3/uL (4.50-10.00)
[2023-10-24 18:52] LABS: ALT 18 U/L (8-44); AST 17 U/L (13-35)
[2023-10-24 19:12] LABS: Hepatitis B Surface Antigen Nonreactive (Nonreactive); Hepatitis C IgG Antibody Nonreactive (Nonreactive)
[2023-10-24 19:54] LABS: Hepatitis B Surface AB- Quant 3.5 mIU/mL
== END | disposition home or self-care (01) ==
LOC: LABWHC1 14:15
PROVIDERS: ATTEND Physician Assistant Medical
DX: L40.0 Psoriasis vulgaris
CPT/HCPCS: 36415; 82565; 84450; 84460; 85025; 86480; 86704; 86706; 86803; 87340

== ENCOUNTER → 2024-03-26 | Outpatient (CLI) | payer BC ==
--- NOTE | 2024-03-26 10:53 | XR ---
EXAMINATION TYPE: XR chest 2V DATE OF EXAM: 03/26/2024 10:49 AM COMPARISON: Chest radiographs from 08/12/2022, CT chest 10/11/2022 TECHNIQUE: XR chest 2V Frontal and lateral views of the chest. CLINICAL INDICATION:Female, 53 years old with history of [id number] COVID,SOB; FINDINGS: Lungs/Pleura: There is no evidence of pleural effusion, focal consolidation, or pneumothorax. Pulmonary vascularity: Unremarkable. Heart/mediastinum: Cardiomediastinal silhouette is unremarkable. Musculoskeletal: No acute osseous pathology. Multilevel degenerative disc disease. IMPRESSION: No acute cardiopulmonary disease/process. [facility], , 03/26/2024 10:51 AM
== END | disposition home or self-care (01) ==
LOC: RADXRYALE 10:36
PROVIDERS: ATTEND Physician Assistant
DX: U07.1 COVID-19 (principal)
CPT/HCPCS: 71046

== ENCOUNTER → 2024-06-01 | Outpatient (CLI) | payer BC ==
--- NOTE | 2024-06-01 11:45 | XR ---
EXAMINATION TYPE: XR abdomen 2V DATE OF EXAM: 06/01/2024 11:37 AM COMPARISON: None. CLINICAL INDICATION: Female, 54 years old with history of [id number] ABD PAIN, TECHNIQUE: XR abdomen 2V view(s) obtained. FINDINGS: There is a normal bowel gas pattern. Psoas margins are normal. No organomegaly is present. There is a 1.1 cm calcification inferior pole left kidney. IMPRESSION: 1. Inferior pole left 1.1 cm renal stone [facility], , 06/01/2024 11:43 AM
== END | disposition home or self-care (01) ==
LOC: RADXRYALE 11:21
PROVIDERS: ATTEND Physician Assistant Medical
DX: N20.0 Calculus of kidney (principal); R10.816 Epigastric abdominal tenderness
CPT/HCPCS: 74019